=== PATIENT | male | born 1995 | race Caucasian/White ===

== ENCOUNTER → 2024-05-17 | Outpatient (CLI) | payer MEDICAID, SELFPAY | END | disposition home or self-care (01) | LOC: SL 10:23 | PROVIDERS: PCP Internal Medicine; Referring Provider Psychiatry & Neurology Neurology; Visit Provider Psychiatry & Neurology Neurology | DX: G47.10 Hypersomnia, unspecified (principal); G47.00 Insomnia, unspecified | CPT/HCPCS: 95806 ==

== ENCOUNTER → 2024-07-08 | Outpatient (CLI) | payer MEDICAID, SELFPAY | END | disposition home or self-care (01) | LOC: PSN 08:18 | PROVIDERS: PCP Internal Medicine; Referring Provider Psychiatry & Neurology Neurology; Visit Provider Psychiatry & Neurology Neurology | DX: G43.009 Migraine without aura, not intractable, without status migrainosus (principal); R41.3 Other amnesia; F41.9 Anxiety disorder, unspecified; F32.A Depression, unspecified; Z87.820 Personal history of traumatic brain injury | CPT/HCPCS: 95819 ==

== ENCOUNTER → 2024-09-29 | Outpatient (CLI) | payer MEDICAID, SELFPAY ==
[2024-09-29 12:20] LABS: Vitamin B12 501 pg/mL (211-911)
[2024-10-06 09:07] LABS: Vitamin B1, Thiamine 159.7 nmol/L (66.5-200.0)
== END | disposition home or self-care (01) ==
PROVIDERS: PCP Internal Medicine; Referring Provider Psychiatry & Neurology Neurology; Visit Provider Psychiatry & Neurology Neurology
DX: R41.3 Other amnesia (principal); F32.A Depression, unspecified; F41.9 Anxiety disorder, unspecified
CPT/HCPCS: 36415; 82607; 82652; 82746; 84425

== ENCOUNTER → 2024-10-26 | Outpatient (CLI) | payer MEDICAID, SELFPAY ==
--- NOTE | 2024-10-26 16:07 | MRI_ITS ---
HISTORY: neck pain; paresthesias in hands. TECHNIQUE: Multiplanar and multisequence MR images of the cervical spine were obtained without contrast. 271 images. COMPARISON: None. FINDINGS: VERTEBRAE: Vertebral body heights are maintained. No significant bone marrow signal abnormality. VERTEBRAL ALIGNMENT: Straightening of the cervical lordosis without anterior or posterior subluxation. SPINAL CORD: Cervical cord signal and morphology within normal limits. SOFT TISSUES: No prevertebral fluid collection. INTERVERTEBRAL DISCS: C2-3: No significant posterior disc protrusion, central canal stenosis, or foraminal narrowing. C3-4: Mild disc bulge resulting in mild central canal stenosis. No significant foraminal narrowing. C4-5: No significant posterior disc protrusion, central canal stenosis, or foraminal narrowing. C5-6: Mild left paracentral disc protrusion with annular fissure abutting the left traversing nerve root with mild central canal stenosis. No significant foraminal narrowing. C6-7: Very mild posterior disc protrusion with minimal narrowing of the thecal sac. No significant foraminal narrowing. C7-T1: No significant posterior disc protrusion, central canal stenosis, or foraminal narrowing. MRI/Spine Cervical (Routine) IMPRESSION: Mild C3-4 disc bulge resulting in mild spinal canal stenosis. Mild C5-6 left paracentral disc protrusion resulting in left nerve root abutment and mild spinal canal stenosis. Electronically Signed: Kassi Rodriguez MD at 12:02 EST ,
== END | disposition home or self-care (01) ==
LOC: MRI 16:02
PROVIDERS: PCP Internal Medicine; Referring Provider Psychiatry & Neurology Neurology; Visit Provider Psychiatry & Neurology Neurology
DX: M54.2 Cervicalgia (principal); R20.2 Paresthesia of skin
CPT/HCPCS: 72141

== ENCOUNTER → 2025-09-11 | Outpatient (CLI) | payer MEDICAID, SELFPAY ==
--- OUTSIDE RECORDS SUMMARY | 2025-09-11 20:09 | XMS RPT_ITS | CCD ---
Author Organization [facility] Clini[facility] Care Team Providers Care Marketing Manager Health Communications Name Role Phone Altagracia Dickerson Unavailable Altagracia Dickerson Unavailable CLEMENTINA BOO Unavailable Unavailable SELF, SELF Unavailable Unavailable YASMINE COLBY Unavailable Unavailable SELF, SELF Unavailable Unavailable YASMINE COLBY Unavailable Unavailable SELF, SELF Unavailable Unavailable Altagracia Dickerson Primary Care Provider [phone] MARITZA PLASCENCIA Attending Unava ilable ALTAGRACIA DICKERSON Primary Care Unavailable MARITZA PLASCENCIA Admitting Unava ilALTAGRACIA Parkinson Primary Care Unavailable NAILA BROCK Attending Unavailabl e Oberhauser DO, Fox Puente Primary Care Provider [phone] Altagracia Dickerson CNP Primary Care Provider OBKLEVER, FOX Referring Unavailable OBERHAUSER, FOX Admitting Unavailable ALTAGRACIA DICKERSON Primary Care Unavailable ESTER DOMÍNGUEZ Attending Unavailable OBERHAUSER, FOX L Referring Unavailable OBERHAUSER, FOX L Primary Care Unavailable OBERHAUSER, FOX L Referring Unavailable OBERHAUSER, FOX L Primary Care Unavailable PEGUEROKENNETH W Admitting Unavailable PEGUEROKENNETH W Attending Unavailable OBERHAUSER, FOX L Primary Care Unavailable EDYTA CHAVEZ Referring Unavailable OBERHAUSER, FOX L Primary Care Unavailable EDYTA CHAVEZ Referring Unavailable OBERHAUSER, FOX L Primary Care Unavailable EDYTA CHAVEZ Referring Unavailable OBERHAUSER, FOX L Primary Care Unavailable EDYTA CHAVEZ Referring Unavailable OBERHAUSER, FOX L Primary Care Unavailable EDYTA CHAVEZ Referring Unavailable OBERHAUSER, FOX L Primary Care Unavailable EDYTA CHAVEZ Referring Unavailable OBERHAUSER, FOX L Primary Care Unavailable EDYTA CHAVEZ Referring Unavailable OBERHAUSER, FOX L Primary Care Unavailable Oberhauser DO, Fox L Unavailable OBERHAUSER, FOX L Attending Unavailable OBERHAUSER, FOX L Primary Care Unavailable PEGUERO, KENNETH W Attending Unavailable OBERHAUSER, FOX L Referring Unavailable OBERHAUSER, FOX L Primary Care Unavailable PEGUERO, KENNETH W Attending Unavailable OBERHAUSER, FOX L Primary Care Unavailable PEGUERO, KENNETH W Attending Unavailable OBERHAUSER, FOX L Primary Care Unavailable OBERHAUSER, FOX L Attending Unavailable OBERHAUSER, FOX L Referring Unavailable OBERHAUSER, FOX L Primary Care Unavailable EDYTA CHAVEZ Attending Unavailable OBERHAUSER, FOX L Referring Unavailable OBERHAUSER, FOX L Primary Care Unavailable EDYTA CHAVEZ Attending Unavailable OBERHAUSER, FOX L Primary Care Unavailable EDYTA CHAVEZ Attending Unavailable OBERHAUSER, FOX L Primary Care Unavailable OBERHAUSER, FOX L Attending Unavailable OBERHAUSER, FOX L Referring Unavailable OBERHAUSER, FOX L Primary Care Unavailable OBERHAUSER, FOX L Primary Care Unavailable Oberhauser Dr. Fox WILEY Primary Care Provider OberhausDr. Fox mendoza DO Referring Provider Dr. Gallo Robles MD Attending Provider [phone] Domingo OLSEN-CMary Jane Attending Provider [phone] [address] Fox mendoza DO Primary Care Provider Oberhauser , Dr. Patterson Referring Provider Mary Jane Lane Attending Unavailable Oberhauser, Fox Primary Care Unavailable Oberhauser, Fox Referring Unavailable Mary Jane Lane Attending Unavailable Oberhauser, Fox Primary Care Unavailable Oberhauser, Fox Referring Unavailable Gallo Robles Attending Unavailable Oberhauser, Fox Primary Care Unavailable Oberhauser, Fox Referring Unavailable Gallo Robles Attending Unavailable Oberhauser, Fox Primary Care Unavailable Oberhauser, Fox Referring Unavailable Baddour, Gallo Attending Unavailable Baddour, Gallo Referring Unavailable Oberhauser, Fox Primary Care Unavailable Oberhauser, Fox Primary Care Unavailable Baddour, Gallo Attending Unavailable Baddour, Gallo Referring Unavailable Oberhauser, Fox Primary Care Unavailable Baddour, Gallo Attending Unavailable Oberhauser, Fox Referring Unavailable Medications Current Medications Medication Drug Class(es) Dates Sig (Normalized) Sig (Original) calcium chloride 0.0014 meq/ml / potassium chloride 0.004 meq/ml / sodium chloride 0.103 meq/ml / sodium lactate 0.028 meq/ml injectable solution (2 sources) Start: 02-16-2024 take 100 mL intravenously every hour 100 mL/hr, intravenous, Continuous, Starting on Thu02/16/24 at 1230, Recovery (only) cephalexin 500 mg oral capsule (1 source) Cephalosporin Antibacterial Start: 02-16-2024 End: 02-19-2024 take 1 capsule by mouth twice daily cephalexin (Keflex) 500 mg capsule Indications: Scrotal cyst Take 1 capsule (500 mg) by mouth 2 times a day for 3 days. 6 capsule 02/16/2024 02/19/2024 Active doxycycline hyclate 100 mg oral capsule (5 sources) Tetracycline-class Drug Start: 01-13-2024 End: 01-20-2024 doxycycline (Vibramycin) 100 mg capsule Indications: Testicle lump Take 1 capsule (100 mg) by mouth 2 times a day for 7 days. Take with at least 8 ounces (large glass) of water, do not lie down for 30 minutes after 14 capsule 0 01/13/2024 01/20/2024 Active HYDROmorphone (2 sources) Opioid Agonist Start: 02-16-2024 0.5 mg, intravenous, Every 5 min PRN, pain moderate (4-6), first line, Starting on Thu02/16/24 at 1202, Recovery (only), Max total of 4 mg regardless of dose. Start: 02-16-2024 0.5 mg, intrav enous, Every 5 min PRN, pain mild (1-3), first line, Starting on Thu02/16/24 at 1202, Recovery (only), Max total of 4 mg regardless of dose. magnesium oxide 400 mg oral tablet (2 sources) Start: 03-23-2025 take 1 tablet by mouth at bedtime Magnesium Oxide 400 mg (241.3 mg magnesium) tablet Active 400 mg PO AT BEDTIME 30 2 March 23, 2025 12:00am medical cannabis (13 sources) medical cannabis Take 1 each by mouth. Active medical cannabis Take 1 each by mouth. 0 Active meloxicam 15 mg oral tablet (4 sources) Nonsteroidal Anti-inflammatory Drug Start: 04-28-2024 End: 04-28-2025 take 1 tablet by mouth once daily meloxicam (Mobic) 15 mg tablet Indications: Bilateral hand numbness Take 1 tablet (15 mg) by mouth once daily. 30 tablet 11 04/28/2024 04/28/2025 Active methylPREDNISolone (1 source) Corticosteroid Start: 10-05-2024 End: 10-11-2024 methylPREDNISolone (Medrol Dospak) 4 mg tablets Indications: Intractable migraine with aura without status migrainosus Take as directed on package. 21 tablet 10/05/2024 10/11/2024 Active ondansetron 4 mg disintegrating oral tablet (10 sources) Serotonin-3 Receptor Antagonist Start: 05-06-2024 take 1 tablet by mouth three times daily as needed for nausea and vomiting Ondansetron 4 mg tablet,disintegratin g Active 4 mg PO THREE TIMES A DAY as needed for nausea and vomiting 90 5 May 06, 2024 4:30pm Start: 05-05-2024 End: 05-06-2024 take 1 tablet by mouth every eight hours Ondansetron 4 mg tablet,disintegrating Discontinued 4 mg PO Q8H May 05, 2024 12:00am May 06, 2024 4:31pm Start: 04-26-2024 End: 05-03-2024 take 1 tablet by mouth every eight hours as needed for nausea and nausea ondansetron ODT (Zofran-ODT) 4 mg disintegrating tablet Indications: Nausea Take 1 tablet (4 mg) by mouth every 8 hours if needed for nausea or vomiting for up to 7 days. 20 tablet 04/26/2024 05/03/2024 Active Start: 04-14-2024 End: 04-21-2024 take 1 tablet by mouth every eight hours as needed for nausea and nausea ondansetron ODT (Zofran-ODT) 4 mg disintegrating tablet Indications: Nausea Take 1 tablet (4 mg) by mouth every 8 hours if needed for nausea or vomiting for up to 7 days. 20 tablet 04/14/2024 04/21/2024 Active Start: 02-16-2024 End: 02-16-2024 4 mg, intravenous, Once as n eeded, nausea/vomiting, first line, Starting on Thu02/16/24 at 1202, For 1 dose, Recovery (only), When administering via IV Push, administer over 3-5 minutes. Start: 09-27-2018 End: 10-02-2018 take 1 tablet by mouth every eight hours as needed for nausea and nausea ondansetron 4 MG Tab Dispersible tablet Indications: Nausea Take 1 tablet by mouth every 8 hours as needed for Nausea for up to 5 days. 15 tablet 0 09/27/2018 10/02/2018 Active oxyCODONE hydrochloride 5 mg oral tablet (1 source) Opioid Agonist Start: 02-16-2024 take 1 tablet by mouth every four hours as needed 5 mg, oral, Every 4 hours PRN, pain mild (1-3), first line, Starting on Thu02/16/24 at 1202, Recovery (only), When able to take oral medications., If ordered PRN for pain, nurse is permitted to administer this medication for higher pain scores based on patient preference? Yes oxygen (O2) therapy (1 source) Start: 02-16-2024 inhalation, Continuous PRN - O2/gases, other, Starting on Thu02/16/24 at 1202, Recovery (only), Device: Nasal Cannula, Rate in liters per minute: Other, Custom Value: 1-6 LPM, Keep O2 Sat Above: 92% promethazine hydrochloride 25 mg oral tablet (1 source) Phenothiazine Start: 10-05-2024 End: 10-12-2024 take 1 tablet by mouth every six hours for nausea promethazine (Phenergan) 25 mg tablet Indications: Intractable migraine with aura without status migrainosus Take 1 tablet (25 mg) by mouth every 6 hours if needed for nausea or vomiting for up to 7 days. 30 tablet 10/05/2024 10/12/2024 Active promethazine (Phenergan) 6.25 mg in sodium chloride 0.9% 50 mL IV (1 source) Start: 02-16-2024 6.25 mg, intravenous, Administer over 15 Minutes, Once as needed, Nausea/vomiting, second line, Starting on Thu02/16/24 at 1202, For 1 dose, Recovery (only) raNITIdine 150 mg oral tablet (2 sources) Histamine-2 Receptor Antagonist Start: 09-27-2018 End: 10-27-2018 take 1 tablet by mouth at bedtime ranitidine 150 MG Tab tablet Indications: Gastroesophageal reflux disease without esophagitis Take 1 tablet by mouth at bedtime. 30 tablet 0 09/27/2018 Active SUMAtriptan 50 mg oral tablet (16 sources) Serotonin-1b and Serotonin-1d Receptor Agonist Start: 06-08-2025 take 1 tablet by mouth every two hours Sumatriptan Succinate 50 mg tablet Active 0 PO .COMPLEX 9 June 08, 2025 12:00am take 1 tab at onset of headache; if no relief may repeat 1 tab after at least 2 hrs; max = 4 tabs/24 hr PO Start: 05-05-2024 End: 05-06-2024 take 1 tablet by mouth every two hours Sumatriptan Succinate (Imitrex) 100 mg tablet Discontinued 0 PO .COMPLEX May 05, 2024 12:00am May 06, 2024 4:30pm take 1 tab at onset of headache; if no relief, may repeat 1 tab after at least 2 hrs; max = 2 tabs/24 hrs PO Start: 01-13-2024 End: 01-12-2025 SUMAtriptan (Imitrex) 50 mg tablet Indications: Chronic migraine without aura without status migrainosus, not intractable Take 1 tablet (50 mg) by mouth 1 time if needed for migraine. May repeat after 2 hours. 9 tablet 5 01/13/2024 01/12/2025 Active topiramate 100 mg oral tablet (11 sources) Start: 03-23-2025 End: 06-08-2025 take 1 tablet by mouth at bedtime Topiramate 100 mg tablet Active 100 mg PO AT BEDTIME 90 June 08, 2025 3:12pm Start: 12-01-2024 End: 03-23-2025 Topiramate 50 mg tablet Disc ontinued 50 mg PO TWICE A DAY 60 5 December 01, 2024 1:00am March 23, 2025 3:10pm Begin after completing 1 week course of topiramate 25 mg twice a day Start: 04-26-2024 End: 12-01-2024 Topiramate 25 mg tablet Disc ontinued 0 .ROUTE .COMPLEX 60 4 September 08, 2024 1:00am December 01, 2024 6:26pm Take 1 tablet orally for 1 week then 1 tablet twice daily thereafter. Completed/Discontinued Medications Medication Drug Class(es) Dates Sig (Normalized) Sig (Original) acetaminophen 325 mg / HYDROcodone bitartrate 5 mg oral tablet (4 sources) Opioid Agonist Start: 02-16-2024 End: 04-14-2024 take 1 tablet by mouth every six hours for pain HYDROcodone-acetam inophen ([place]) 5-325 mg tablet Indications: Scrotal cyst Take 1 tablet by mouth every 6 hours if needed for severe pain (7 - 10). 20 tablet 02/16/2024 04/14/2024 Discontinued (Therapy completed) amoxicillin 500 mg oral capsule (1 source) Penicillin-class Antibacterial Start: 10-21-2018 End: 10-31-2018 take 1 capsule by mouth every twelve hours amoxicillin 500 MG Cap capsule Indications: Pharyngitis due to Streptococcus species Take 1 capsule by mouth every 12 hours for 10 days. 20 capsule 0 10/21/2018 10/31/2018 5 ml midazolam 1 mg/ml injection (1 source) Benzodiazepine Start: 02-16-2024 End: 02-16-2024 2 mg, intravenous, Once as needed, anxiety, Starting on Thu02/16/24 at 1019, For 1 dose, Preprocedure rimegepant 75 mg disintegrating oral tablet (4 sources) Start: 12-01-2024 End: 06-08-2025 take 1 tablet by mouth once daily as needed for headache Rimegepant (Nurtec Odt) 75 mg tablet,disintegrat ing Discontinued 75 mg PO DAILY as needed for migraine headache 16 5 March 23, 2025 3:10pm June 08, 2025 3:19pm ubrogepant 100 mg oral tablet (9 sources) Start: 04-14-2024 End: 12-01-2024 take 1 tablet by mouth once daily as needed for headache Ubrogepant (Ubrelvy) 100 mg tablet Discontinued 100 mg PO DAILY as needed for headache 16 5 May 06, 2024 4:29pm December 01, 2024 6:26pm Problems Active Problems Problem Classification Problem Date Documented Date Episodic/Chronic Anxiety disorders (12 sources) Posttraumatic stress disorder; Translations: [Post-traumatic stress disorder, unspecified] Onset: 02-16-2024 02-16-2024 Chronic Headache; including migraine (20 sources) Migraine without aura, not refractory ; Translations: [Chronic migraine without aura, not intractable, without status migrainosus] Onset: 01-13-2024 01-13-2024 Chronic Intracranial injury (20 sources) History of concussion injury of brain; Translations: [Personal history of traumatic brain injury] Onset: 01-13-2024 01-13-2024 Episodic Mood disorders (2 sources) Depressive disorder; Translations: [Depression] 05-06-2024 Chronic Other connective tissue disease (1 source) Pain of bilateral upper limbs; Translations: [Pain in right arm] 05-30-2024 Episodic Other connective tissue disease (2 sources) Pain in right arm; Translations: [Pain in right arm] Onset: 05-30-2024 Episodic Other connective tissue disease (2 sources) Pain in left arm; Translations: [Pain in left arm] Onset: 05-30-2024 Episodic Other male genital disorders (10 sources) Disorder of male genital organ; Translations: [Hydrocele, unspecified] Onset: 01-27-2024 01-27-2024 Episodic Other nervous system disorders (7 sources) Paresthesia of skin; Translations: [Paresthesia of both hands] Onset: 06-08-2025 09-08-2024 Episodic Other upper respiratory disease (1 source) Pain in throat; Translations: [Sore Throat] Onset: 10-17-2018 Episodic Other upper respiratory infections (2 sources) Viral laryngitis; Translations: [Streptococcal sore throat] Episodic Residual codes; unclassified (2 sources) Hypersomnia; Translations: [Hypersomnia, unspecified] 05-06-2024 Chronic Residual codes; unclassified (1 source) Sleep apnea, unspecified; Translations: [Sleep apnea, unspecified] Onset: 08-21-2025 Chronic Residual codes; unclassified (2 sources) Insomnia; Translations: [Insomnia, unspecified] 05-06-2024 Episodic Residual codes; unclassified (6 sources) Amnesia; Translations: [Other amnesia] 12-03-2024 Episodic Residual codes; unclassified (1 source) Other amnesia; Translations: [Other amnesia] Onset: 06-08-2025 Episodic Unclassified (1 source) Sore Throat / 82() Onset: 10-17-2018 Unclassified (1 source) Vomiting / 120() Onset: 09-27-2018 Unclassified (1 source) Chronic migraine with aura, not intractable, without status migrainosus; Translations: [Chronic migraine with aura, not intractable, without status migrainosus] Onset: 04-14-2024 Past or Other Problems Problem Classification Problem Date Documented Da te Episodic/Chronic Esophageal disorders (1 source) Esophageal disorders Genitourinary symptoms and ill-defined conditions (11 sources) Nocturia; Translations: [Nocturia] Onset: 01-27-2024 01-27-2024 Episodic Mood disorders (2 sources) Mood disorders Onset: 05-23-2024 05-23-2024 Nausea and vomiting (5 sources) Nausea; Translations: [Vomiting] Onset: 09-27-2018 04-14-2024 Episodic Other connective tissue disease (4 sources) Pain of bilateral hands; Translations: [Pain in right hand] Onset: 05-25-2024 04-28-2024 Episodic Other connective tissue disease (2 sources) Pain in right hand; Translations: [Pain in right hand] Onset: 05-25-2024 Episodic Other connective tissue disease (2 sources) Pain in left hand; Translations: [Pain in left hand] Onset: 05-25-2024 Episodic Other male genital disorders (16 sources) Testicular mass; Translations: [Other specified disorders of the male genital organs] Onset: 01-13-2024 01-13-2024 Episodic Other male genital disorders (4 sources) Other specified disorders of the male genital organs; Translations: [Other specified disorders of the male genital organs] Onset: 01-13-2024 Episodic Other male genital disorders (2 sources) Hydrocele, unspecified; Translations: [Hydrocele, unspecified] Onset: 01-27-2024 Episodic Other nervous system disorders (7 sources) Numbness of hand; Translations: [Anesthesia of skin] Onset: 05-23-2024 04-15-2024 Episodic Other nervous system disorders (4 sources) Anesthesia of skin; Translations: [Anesthesia of skin] Onset: 05-23-2024 Episodic Other screening for suspected conditions (not mental disorders or infectious disease) (20 sources) Patient encounter status; Translations: [Encounter for screening for diabetes mellitus] Onset: 01-13-2024 01-13-2024 Episodic Other skin disorders (11 sources) Scrotal mass; Translations: [Follicular cyst of the skin and subcutaneous tissue, unspecified] Onset: 02-05-2024 02-16-2024 Episodic Other skin disorders (8 sources) Sebaceous cyst of scrotum; Translations: [Sebaceous cyst] Onset: 03-03-2024 03-03-2024 Episodic Other skin disorders (4 sources) Follicular cyst of the skin and subcutaneous tissue, unspecified; Translations: [Follicular cyst of the skin and subcutaneous tissue, unspecified] Onset: 02-05-2024 Episodic Other skin disorders (2 sources) Sebaceous cyst; Translations: [Sebaceous cyst] Onset: 03-03-2024 Episodic Spondylosis; intervertebral disc disorders; other back problems (7 sources) Neck pain; Translations: [Cervicalgia] Onset: 11-15-2024 09-08-2024 Episodic Unclassified (13 sources) Onset: 01-13-2024 Resolved: 05-23-2024 01-13-2024 Unclassified (1 source) Chronic migraine with aura, not intractable, without status migrainosus; Translations: [Chronic migraine with aura, not intractable, without status migrainosus] Onset: 04-14-2024 Results Test Name Value Interpretation Reference Range [facility] Neurology Visit Reporton Neurology Visit Report [facility] [address] [place] [address], [address] [place] [address] OFFICE VISIT Date of Service: 08/21/25 MR#: [id number] Acct: [id number] Name: JOSE FLORES II Rep #: [id number] : 1995 Provider: Dr. Gallo avitia MD Age/Sex: 30/M Location: [facility] Status: Signed HPI HPI Details: Interim History: Jose returns for follow-up visit. He has a history of depression, anxiety, posttraumatic stress disorder, attention deficit hyperactivity disorder, prior peptic ulcer disease, and hyperlipidemia. He has been experiencing headaches since he was a teenager. His headaches were initially mild. Around 2019, he had 2 concussions that occurred a month apart. With each of the occurrences, he was struck in the head by frying machine equipment at his place of employment. He did not lose consciousness with either of the episodes. He stated that his concentration was impaired and he had impaired recall following these episodes. He was seen in the emergency room following each of the episodes and was discharged home with a diagnosis of mild concussion. He has continued to report having impaired concentration and impaired recall. His headaches worsened following these mild concussions and he had headaches nearly daily. Topiramate 25mg daily was initiated in 2022 and increased to 50mg twice daily in November 2024. His headaches were reduced to 2 to 3 days per week with severe headaches occurring about 1 day per week. He then had an increase in frequency of headaches again beginning in in March 2025. He is taking topiramate 100 mg nightly. He is experiencing headaches almost daily. He often awakens with headaches. He has associated photophobia, phonophobia and occasionally has associated nausea. He denied having visual field loss, or hearing loss. He occasionally has had episodes of acute sharp head pain that last about 10 minutes each. Advil and sumatriptan 100 mg were not of benefit for his headaches. Ubrelvy 100mg was not of benefit for his headaches. Nurtec ODT 75mg daily as needed was not of benefit. Rizatriptan has not been of benefit. He has chronic neck pain that has been present since around the age of 17 years. Since 2023, he has been experiencing numbness and tingling and weakness in both hands, initially left greater than right but now right greater than left. He has a tendency to drop objects from his hands. Wrist x- rays were unremarkable. EMG/nerve conduction studies of the upper extremities (2023) were normal. A cervical spine MRI in October 2024 revealed straightening of the normal cervical lordosis and multilevel disc disease including 2 small disc herniates at C5-6 and C6-7. Left nerve root abutment at C5-6 is noted. He has insomnia. He snores at night. He does not feel well rested when he awakens in the morning. He has daytime hypersomnia. He is awakened from sleep at night feeling short of breath. He awakens multiple times during the night. His unattended sleep study did not reveal evidence of sleep apnea. Patient reports excessive caffeine intake (Mountain Dew). He has been using marijuana since 2018. Marijuana was medically prescribed beginning around 2019. During childhood he was treated with Adderall and Ritalin for his attention deficit hyperactivity disorder. Mini-Mental status exam score was 26/30 in April 2024. Physical Exam: Neuro: The patient is awake and alert and responds appropriately Heart: Regular rate and rhythm Neck: Neck circumference 43 cm Supplemental Info Head MRI (01/18/24): Findings: CSF spaces: the ventricles, sulci and basal cisterns are within normal limits. there is no abnormal extra-axial fluid collection. Parenchyma: There is no diffusion restriction abnormality to suggest acute infarct. There is no focal parenchymal signal abnormality. There is no mass effect or midline shift. Paranasal sinuses and Mastoids: There is a small mucosal retention cysts in the floor of the left maxillary sinus, otherwise the visualized pranasal sinuses and mastoid air cells are essentially clear. Impression: Unremarkable MRI fo the brain. CBC, CMP, lipid profile, hemoglobin A1c, TSH (03/24/24): cholesterol 206 (high), LDL 143 (high), VLDL 22 (normal), triglycerides 112 (normal), non HDL cholesterol 165 (high), HDL 41 (normal), glucose 112 (high). Bilateral wrist x-rays (04/28/24): unremarkable bilateral wrist radiographs. Unattended sleep study (05/17/2024): The study does not meet the criteria used to define the presence of sleep apnea. Clinical correlation is suggested. An inpatient sleep study should be considered if the clinical suspicion for sleep apnea is high. EMG/nerve conduction studies of the upper extremities (05/30/2024): Summary: The bilateral median and ulnar motor and sensory nerve conduction studies were normal. The bilateral radial sensory nerve conduction studies were also normal (more content not included)... Normal [facility] Neurology Visit Reporton Neurology Visit Report [facility] [address], [address] [place] [address] OFFICE VISIT Date of Service: 06/08/25 MR#: [id number] Acct: [id number] Name: JOSE FLORES II Rep #: [id number] : 1995 Provider: SANDRA wang Age/Sex: 30/M Location: [facility]. Status: Signed HPI HPI Details: Interim History: Jose returns for follow-up visit. He is accompanied by his girlfriend. He has a history of depression, anxiety, posttraumatic stress disorder, attention deficit hyperactivity disorder, prior peptic ulcer disease, and hyperlipidemia. He has been experiencing headaches since he was a teenager. His headaches were initially mild. He states that around 2019, he had 2 concussions that occurred a month apart. With each of the occurrences, he was struck in the head by frying machine equipment at his place of employment. He did not lose consciousness with either of the episodes. He stated that his concentration was impaired and he had impaired recall following these episodes. He was seen in the emergency room following each of the episodes and was discharged home with a diagnosis of mild concussion. He continues to report having impaired concentration and impaired recall. His headaches worsened following these mild concussions and he had headaches nearly daily. Topiramate 25mg daily was initiated in 2022 and increased to 50mg twice daily in November 2024. His headaches were reduced to 2 to 3 days per week with severe headaches occurring about 1 day per week. Patient had an increase in frequency of headaches again in March 2025. He reports difficulties with medication adherence and therefore was switched to topiramate 100 mg nightly to assist with this. He has associated photophobia, phonophobia and occasionally has associated nausea. He denied having visual field loss, or hearing loss. He occasionally has had episodes of acute sharp head pain that last about 10 minutes each. Advil and sumatriptan 100 mg were not of benefit for his headaches. Ubrelvy 100mg is not of benefit for his headaches. Nurtec ODT 75mg daily as needed was reported to not be of benefit. He has chronic neck pain that has been present since around the age of 17 years. Since in 2023 he has been experiencing numbness and tingling and weakness in both hands, initially left greater than right but now right greater than left. He states that he has a tendency to drop objects from his hands. Wrist x-rays were unremarkable. EMG/nerve conduction studies of the upper extremities performed in 2023 were normal. A cervical spine MRI in October 2024 revealed straightening of the normal cervical lordosis and multilevel disc disease including 2 small disc herniates at C5-6 and C6-7. Left nerve root abutment at C5-6 is noted. He has insomnia. He awakens multiple times during the night. He snores at night. He does not feel well rested when he awakens in the morning. He has daytime hypersomnia. His unattended sleep study did not reveal evidence of sleep apnea. Patient reports excessive caffeine intake (Mountain Dew) and minimal to no water intake. He has been using marijuana since 2018. Marijuana was medically prescribed beginning around 2019. During childhood he was treated with Adderall and Ritalin for his attention deficit hyperactivity disorder. Mini-Mental status exam score was 26/30 in April 2024. ROS: Per HPI, essentially unchanged from previous visit PHYSICAL EXAM: Constitutional: Well-developed obese male in no acute distress. He is right-handed. Vital signs WNL. Respiratory: Normal effort. Symmetric chest movement. Clear to auscultation bilaterally. Cardio: Regular rate and rhythm. No auscultated murmurs. No auscultated carotid bruit. Neurological exam: Mental status: Alert, awake, oriented to person, place, year, and day of the week. Immediate recall is 3/3; delayed 5-minute recall is 2/3. Speech is fluent with good comprehension. He has a flat affect. Cranial nerves II-XII: PERRL 4 mm in size bilaterally. EOM intact. Ocular pursuit is smooth. There are no reported visual field deficits. Facial sensation is relatively intact, his left cheek is swollen due to a wisdom tooth needing removal per patient report. No ptosis. Tongue is midline. Phonation is normal. Swallowing is intact. Cerebellum: No nystagmus. No dysmetria; normal [id number] maneuvers. Rapid finger tapping test normal with normal amplitude and speed. Reflexes: Biceps and patellar deep tendon reflexes are 1+ throughout and symmetric bilaterally. Sensory: Sensation is impaired to light touch and vibration in in the bilateral fingers, hands, and forearms. Sensory loss is worse distally and worse on the right. Supplemental Info Head MRI (01/18/24): Findings: CSF spaces: the ventricles, sulci and basal cisterns are within normal limits. there is no abnormal extra-axial fluid collection. Parenchyma: Ther (more content not included)... Normal [facility] Neurology Visit Reporton Neurology Visit Report [facility] [address], [address] [place] [id number] OFFICE VISIT Date of Service: 03/23/25 MR#: [id number] Acct: [id number] Name: JOSE FLORES II Rep #: [id number] : 1995 Provider: SANDRA wang Age/Sex: 30/M Location: [facility]. Status: Signed HPI HPI Details: Interim History: Jose returns for follow-up visit. He is accompanied by his girlfriend. He has a history of depression, anxiety, posttraumatic stress disorder, attention deficit hyperactivity disorder, prior peptic ulcer disease, and hyperlipidemia. He has been experiencing headaches since he was a teenager. His headaches were initially mild. He states that around 2019, he had 2 concussions that occurred a month apart. With each of the occurrences, he was struck in the head by frying machine equipment at his place of employment. He did not lose consciousness with either of the episodes. He stated that his concentration was impaired and he had impaired recall following these episodes. He was seen in the emergency room following each of the episodes and was discharged home with a diagnosis of mild concussion. He continues to report having impaired concentration and impaired recall. His headaches worsened following these mild concussions and he had headaches nearly daily. Topiramate 25mg daily was initiated in 2022 and was most recently increased to 50mg twice daily in November 2024. His headaches were reduced to 2 to 3 days per week with severe headaches occurring about 1 day/week. He has associated photophobia, phonophobia and occasionally has associated nausea. He denied having visual field loss, or hearing loss. He occasionally has had episodes of acute sharp head pain that last about 10 minutes each. Advil and sumatriptan 100 mg were not of benefit for his headaches. Ubrelvy 100mg is not of benefit for his headaches. Nurtec ODT 75mg daily as needed is of unclear benefit at this time. Of note, patient has difficulties with medication adherence. He has chronic neck pain that has been present since around the age of 17 years. Since in 2023 he has been experiencing numbness and tingling and weakness in both hands (left greater than right). He states that he has a tendency to drop objects from his hands. Wrist x-rays were unremarkable. EMG/nerve conduction studies of the upper extremities performed in 2023 were normal. A cervical spine MRI in October 2024 revealed straightening of the normal cervical lordosis and multilevel disc disease including 2 small disc herniates at C5-6 and C6-7. Left nerve root abutment at C5-6 is noted. He has insomnia. He awakens multiple times during the night. He snores at night. He does not feel well rested when he awakens in the morning. He has daytime hypersomnia. He has unattended sleep study did not reveal evidence of sleep apnea. He has been using marijuana since 2018. Marijuana was medically prescribed beginning around 2019. During childhood he was treated with Adderall and Ritalin for his attention deficit hyperactivity disorder. Mini-Mental status exam score was 26/30 in April 2024. Patient reports excessive caffeine intake (Mountain Dew) and minimal to no water intake. ROS: Per HPI, essentially unchanged from previous visit Physical Exam: Neuro: The patient is awake and alert and responds appropriately; speech is fluent with good comprehension; he currently has a headache with photophobia- he is wearing sunglasses Supplemental Info Head MRI (01/18/24): Findings: CSF spaces: the ventricles, sulci and basal cisterns are within normal limits. there is no abnormal extra-axial fluid collection. Parenchyma: There is no diffusion restriction abnormality to suggest acute infarct. There is no focal parenchymal signal abnormality. There is no mass effect or midline shift. Paranasal sinuses and Mastoids: There is a small mucosal retention cysts in the floor of the left maxillary sinus, otherwise the visualized pranasal sinuses and mastoid air cells are essentially clear. Impression: Unremarkable MRI fo the brain. CBC, CMP, lipid profile, hemoglobin A1c, TSH (03/24/24): cholesterol 206 (high), LDL 143 (high), VLDL 22 (normal), triglycerides 112 (normal), non HDL cholesterol 165 (high), HDL 41 (normal), glucose 112 (high). Bilateral wrist x-rays (04/28/24): unremarkable bilateral wrist radiographs. Unattended sleep study (05/17/2024): The study does not meet the criteria used to define the presence of sleep apnea. Clinical correlation is suggested. An inpatient sleep study should be considered if the clinical suspicion for sleep apnea is high. EMG/nerve conduction studies of the upper extremities (05/30/2024): Summary: The bilateral median and ulnar motor and sensory nerve conduction studies were normal. The bilateral radial sensory nerve conduction studies were also normal. Needle EMG of the tested muscles (more content not included)... Normal [facility] Neurology Visit Reporton Neurology Visit Report [facility] [address], [address] [place] [address] OFFICE VISIT Date of Service: 12/01/24 MR#: [id number] Acct: [id number] Name: JOSE FLORES II Rep #: [id number] : 1995 Provider: Dr. Gallo avitia MD Age/Sex: 29/M Location: [facility]. Status: Signed HPI HPI Chief Complaint: Establish Care Details: Interim History: Jose returns for follow-up visit. He has a history of depression, anxiety, posttraumatic stress disorder, attention deficit hyperactivity disorder, prior peptic ulcer disease, and hyperlipidemia. He has been experiencing headaches since he was a teenager. His headaches were initially mild. He states that around 2019, he had 2 concussions that occurred a month apart. With each of the occurrences, he was struck in the head by frying machine equipment at his place of employment. He did not lose consciousness with either of the episodes. He stated that his concentration was impaired and he had impaired recall following these episodes. He was seen in the emergency room following each of the episodes and was discharged home with a diagnosis of mild concussion. He continues to report having impaired concentration and impaired recall. His headaches worsened following these mild concussions and he had headaches nearly daily. Topiramate 25mg daily was initiated in 2022. He now has headaches 2 to 3 days per week. Severe headaches occur about 1 day/week. He has associated photophobia, phonophobia and occasionally has associated nausea. He denied having visual field loss, or hearing loss. He occasionally has had episodes of acute sharp head pain that last about 10 minutes each. Advil and sumatriptan 100 mg were not of benefit for his headaches. Ubrelvy 100mg is not of benefit for his headaches. He has chronic neck pain that has been present since around the age of 17 years. Since in 2023 he has been experiencing numbness and tingling and weakness in both hands (left greater than right). He states that he has a tendency to drop objects from his hands. Wrist x-rays were unremarkable. EMG/nerve conduction studies of the upper extremities performed in 2023 were normal. A cervical spine MRI in October 2024 revealed straightening of the normal cervical lordosis and multilevel disc disease including 2 small disc herniates at C5-6 and C6-7. Left nerve root abutment at C5-6 is noted. He has insomnia. He awakens multiple times during the night. He snores at night. He does not feel well rested when he awakens in the morning. He has daytime hypersomnia. He has unattended sle ep study did not reveal evidence of sleep apnea. He has been using marijuana since 2018. Marijuana was medically prescribed beginning around 2019. During childhood he was treated with Adderall and Ritalin for his attention deficit hyperactivity disorder. Mini-Mental status exam score was 26/30 in April 2024. Physical Exam: Neuro: The patient is awake and alert and responds appropriately; speech is fluent; motor strength is 5/5 in the first dorsal interosseous bilaterally and abductor pollicis brevis bilaterally Supplemental Info Head MRI (01/18/24): Findings: CSF spaces: the ventricles, sulci and basal cisterns are within normal limits. there is no abnormal extra-axial fluid collection. Parenchyma: There is no diffusion restriction abnormality to suggest acute infarct. There is no focal parenchymal signal abnormality. There is no mass effect or midline shift. Paranasal sinuses and Mastoids: There is a small mucosal retention cysts in the floor of the left maxillary sinus, otherwise the visualized pranasal sinuses and mastoid air cells are essentially clear. Impression: Unremarkable MRI fo the brain. CBC, CMP, lipid profile, hemoglobin A1c, TSH (03/24/24): cholesterol 206 (high), LDL 143 (high), VLDL 22 (normal), triglycerides 112 (normal), non HDL cholesterol 165 (high), HDL 41 (normal), glucose 112 (high). Bilateral wrist x-rays (04/28/24): unremarkable bilateral wrist radiographs. Unattended sleep study (05/17/2024): The study does not meet the criteria used to define the presence of sleep apnea. Clinical correlation is suggested. An inpatient sleep study should be considered if the clinical suspicion for sleep apnea is high. EMG/nerve conduction studies of the upper extremities (05/30/2024): Summary: The bilateral median and ulnar motor and sensory nerve conduction studies were normal. The bilateral radial sensory nerve conduction studies were also normal. Needle EMG of the tested muscles showed no abnormal spontaneous activity. Normal motor unit action potentials and recruitment patterns were seen. Impression: This is a normal EMG. There is no clear electrodiagnostic evidence of a bilateral cervical radiculopathy, brachial plexopathy, entrapment neuropathy, median or ulnar neuropathy at this time. EEG (07/08/2024): Description (more content not included)... Normal [facility] Spine Cervical (Routine)on 0 10-26-2024 Spine Cervical (Routine) [facility] [address] [place] [address] Spine Cervical (Routine) MR#: [id number] Acct: [id number] Name: JOSE FLORES LLOYD Rep #: [id number] : 1995 M 29 From: Kassi klein MD PCP: Dr. Fox Arnett, DO Status: REG CLI Study: Spine Cervical (Routine) Date of Exam: Exam# [id number] Ordering Dr: Galol Robles MD [id number] HISTORY: neck pain; paresthesias in hands. TECHNIQUE: Multiplanar and multisequence MR images of the cervical spine were obtained without contrast. 271 images. COMPARISON: None. FINDINGS: VERTEBRAE: Vertebral body heights are maintained. No significant bone marrow signal abnormality. VERTEBRAL ALIGNMENT: Straightening of the cervical lordosis without anterior or posterior subluxation. SPINAL CORD: Cervical cord signal and morphology within normal limits. SOFT TISSUES: No prevertebral fluid collection. INTERVERTEBRAL DISCS: C2-3: No significant posterior disc protrusion, central canal stenosis, or foraminal narrowing. C3-4: Mild disc bulge resulting in mild central canal stenosis. No significant foraminal narrowing. C4-5: No significant posterior disc protrusion, central canal stenosis, or foraminal narrowing. C5-6: Mild left paracentral disc protrusion with annular fissure abutting the left traversing nerve root with mild central canal stenosis. No significant foraminal narrowing. C6-7: Very mild posterior disc protrusion with minimal narrowing of the thecal sac. No significant foraminal narrowing. C7-T1: No significant posterior disc protrusion, central canal stenosis, or foraminal narrowing. MRI/Spine Cervical (Routine) IMPRESSION: Mild C3-4 disc bulge resulting in mild spinal canal stenosis. Mild C5-6 left paracentral disc protrusion resulting in left nerve root abutment and mild spinal canal stenosis. Electronically Signed: Kassi Rodriguez MD at 12:02 EST , CC: Dr. 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 B1, Whole Blood was developed and its performance characteristics determined by [employer]. It has not been cleared or approved by the Food and Drug Administration. Result Comment: Perf ormed at: [facility] [address] [id number] [employer] Supervisor: Junito Nolasco MD, Phone: [phone] Performed By: #### L 503.6588, L3213.3760, L506.0250, L3300.8000 #### [facility] [address] [facility] [place], [place], [id number] Vitamin D 1,25-Dihydroxyon 1 12-04-2023 VIT D 1,25 DIHY 35.0 pg/mL Normal 24.8-81.5 [facility] Comment on above: Result Comment: Perf ormed at: [address] [id number] [employer] Supervisor: Junito Nolasco MD, Phone: [phone] Performed By: #### L 503.0105, L3300.0960, L506.0250, L3300.8000 #### [facility] [address] [place], [address] Folates, (Folic Acid)on 09-18 FOLATES 4.70 ng/mL Normal 3.1-55.4 [facility] Comment on above: Order Comment: N Performed By: #### L 503.0105, L3300.0960, L506.0250, L3300.8000 #### [facility] [address] [place], [address] Vitamin B12on 09-29-2024 Cobalamin (Vitamin B12) [Mass/Vol] 501 pg/mL Normal 211-911 [facility] Comment on above: Performed By: #### L 503.0105, L3300.0960, L506.0250, L3300.8000 #### [facility] [address] [place], [address] Neurology Visit Reporton Neurology Visit Report [facility] [address], [address] [place], [place] [address] OFFICE VISIT Date of Service: 09/08/24 MR#: [id number] Acct: [id number] Name: JOSE FLORES II Rep #: [id number] : 1995 Provider: Dr. Gallo avitia MD Age/Sex: 29/M Location: [facility] Status: Signed [facility] Chief Complaint: Establish Care Details: Interim History: Jose returns for follow-up visit. He has a history of depression, anxiety, posttraumatic stress disorder, attention deficit hyperactivity disorder, prior peptic ulcer disease, and hyperlipidemia. He has been experiencing headaches since he was a teenager. His headaches were initially mild. He states that around 2019, he had 2 concussions that occurred a month apart. With each of the occurrences, he was struck in the head by frying machine equipment at his place of employment. He did not lose consciousness with either of the episodes. He stated that his concentration was impaired and he had impaired recall following these episodes. He was seen in the emergency room following each of the episodes and was discharged home with a diagnosis of mild concussion. He continues to report having impaired concentration and impaired recall. His headaches worsened following these mild concussions and he reports that he has been experiencing headaches nearly daily. Severe headaches occur about 1 day/week. He has associated photophobia, phonophobia and occasionally has associated nausea. He denied having visual field loss, or hearing loss. He occasionally also has had episodes of acute sharp head pain that last about 10 minutes each. Advil and sumatriptan 100 mg were not not of benefit for his headaches. He has chronic neck pain that has been present since around the age of 17 years. Since earlier in 2023 he has been experiencing numbness and tingling and weakness in both hands (left greater than right). He states that he has a tendency to drop objects from his hands. Wrist x-rays were unremarkable. EMG/nerve conduction studies of the upper extremities performed earlier in 2023 were normal. He has insomnia. He states that he awakens multiple times during the night. He snores at night. He does not feel well rested when he awakens in the morning. He has daytime hypersomnia. He has unattended sleep study did not reveal evidence of sleep apnea. He has been using marijuana since 2019. Marijuana was medically prescribed beginning around 2019. During childhood he was treated with Adderall and Ritalin for his attention deficit hyperactivity disorder. Mini-Mental status exam score was 26/30 in April 2024. Physical Exam: Neuro: The patient is awake and alert and responds appropriately; speech is fluent; motor strength is 5/5 in the biceps bilaterally, triceps bilaterally, deltoid bilaterally, first dorsal interosseous bilaterally and abductor pollicis brevis bilaterally; decreased soft touch is noted in the left index finger Extremities: No cyanosis or edema is noted in the hands Supplemental Info Head MRI (01/18/24): Findings: CSF spaces: the ventricles, sulci and basal cisterns are within normal limits. there is no abnormal extra-axial fluid collection. Parenchyma: There is no diffusion restriction abnormality to suggest acute infarct. There is no focal parenchymal signal abnormality. There is no mass effect or midline shift. Paranasal sinuses and Mastoids: There is a small mucosal retention cysts in the floor of the left maxillary sinus, otherwise the visualized pranasal sinuses and mastoid air cells are essentially clear. Impression: Unremarkable MRI fo the brain. CBC, CMP, lipid profile, hemoglobin A1c, TSH (03/24/24): cholesterol 206 (high), LDL 143 (high), VLDL 22 (normal), triglycerides 112 (normal), non HDL cholesterol 165 (high), HDL 41 (normal), glucose 112 (high). Bilateral wrist x-rays (04/28/24): unremarkable bilateral wrist radiographs. Unattended sleep study (05/17/2024): The study does not meet the criteria used to define the presence of sleep apnea. Clinical correlation is suggested. An inpatient sleep study should be considered if the clinical suspicion for sleep apnea is high. EMG/nerve conduction studies of the upper extremities (05/30/2024): Summary: The bilateral median and ulnar motor and sensory nerve conduction studies were normal. The bilateral radial sensory nerve conduction studies were also normal. Needle EMG of the tested muscles showed no abnormal spontaneous activity. Normal motor unit action potentials and recruitment patterns were seen. Impression: This is a normal EMG. There is no clear electrodiagnostic evidence of a bilateral cervical radiculopathy, brachial plexopathy, entrapment neuropathy, median or ulnar neuropathy at this time. EEG (07/08/2024): Description: Background: The recording was obtained during awake and drowsy state. In the maximally alert state, (more content not included)... Normal [facility] XR Wrist - bilateral 3 Views on 04-29-2024 1. Unremarkable bilateral wrist radiographs. MACRO: None. Signed by: Sho Cavazos 04/29/2024 6:40 PM Dictation workstation: [id number] MMODAL Interpreted By: Sho Cavazos, STUDY: Bilateral wrists, three views each. INDICATION: Signs/Symptoms:pain, numb, tingling. COMPARISON: None. ACCESSION NUMBER(S): [id number] ORDERING CLINICIAN: EDYTA CHAVEZ FINDINGS: Right wrist: No acute fracture or malalignment. No significant degenerative changes. Soft tissues are within normal limits. Left wrist: No acute fracture or malalignment. No significant degenerative changes. Soft tissues are within normal limits. MMODAL Sho Cavazos MD - 04/29/2024 Interpreted By: Kosaraju, Sho, STUDY: Bilateral wrists, three views each. INDICATION: Signs/Symptoms:pain, numb, tingling. COMPARISON: None. ACCESSION NUMBER(S): [id number] ORDERING CLINICIAN: EDYTA CHAVEZ FINDINGS: Right wrist: No acute fracture or malalignment. No significant degenerative changes. Soft tissues are within normal limits. Left wrist: No acute fracture or malalignment. No significant degenerative changes. Soft tissues are within normal limits. IMPRESSION: 1. Unremarkable bilateral wrist radiographs. MACRO: None. Signed by: Sho Cavazos 04/29/2024 6:40 PM Dictation workstation: [id number] [facility] Work Phone: XR Wrist - bilateral 3 Views Ordered By: Sho Cavazos on 04-29-2024 [facility] Work Phone: XR WRIST 3+ VIEWS BILATERALo n 04-28-2024 XR WRIST 3+ VIEWS BILATERAL Interpreted By: Sho Cavazos, STUDY: Bilateral wrists, three views each. INDICATION: Signs/Symptoms:pain, numb, tingling. COMPARISON: None. ACCESSION NUMBER(S): [id number] ORDERING CLINICIAN: EDYTA CHAVEZ FINDINGS: Right wrist: No acute fracture or malalignment. No significant degenerative changes. Soft tissues are within normal limits. Left wrist: No acute fracture or malalignment. No significant degenerative changes. Soft tissues are within normal limits. IMPRESSION: 1. Unremarkable bilateral wrist radiographs. MACRO: None. Signed by: Sho Cavazos 04/29/2024 6:40 PM Dictation workstation: [id number] Normal [facility] XR Wrist - bilateral 3 Views on 04-28-2024 Radiology Study observation (narrative) [facility] Work Phone: CBC W Auto Differential pane l (Bld)on 03-24-2024 Basophils (Bld) [#/Vol] 0.07 x10*3/uL Normal 0.00-0.10 [facility] Comment on above: Performed By: #### 5 7021-8 #### OGDEN LEIF ([id number]) [facility] ([facility]) [address] [place] [address] 49023 Basophils/100 WBC (Bld) 0.8 % Normal 0.0-2.0 [facility] Comment on above: Performed By: #### 5 7021-8 #### MELVI YADAV ([id number]) [facility] ([facility]) [address] [place] [address] 28968 Eosinophils (Bld) [#/Vol] 0.63 x10*3/uL Normal 0.00-0.70 [facility] Comment on above: Performed By: #### 5 7021-8 #### MELVI YADAV ([id number]) [facility] ([facility]) [address] [place] [address] 88293 Eosinophils/100 WBC (Bld) 6.9 % Normal 0.0-6.0 [facility] Comment on above: Performed By: #### 5 7021-8 #### MELVI YADAV ([id number]) [facility] ([facility]) [address] [place] [address] 32961 Erythrocyte distribution width (RBC) [Ratio] 11.9 % Normal 11.5-14.5 [facility] Comment on above: Performed By: #### 5 7021-8 #### MELVI YADAV ([id number]) [facility] ([facility]) [address] [place] [address] 00761 Hematocrit (Bld) [Volume fraction] 44.9 % Normal 41.0-52.0 [facility] Comment on above: Performed By: #### 5 7021-8 #### MELVI YADAV ([id number]) [facility] ([facility]) [address] [place] [address] 65374 Hemoglobin (Bld) [Mass/Vol] 14.7 g/dL Normal 13.5-17.5 [facility] Comment on above: Performed By: #### 5 7021-8 #### MELVI YADAV ([id number]) [facility] ([facility]) [address] [place] [address] 67788 Immature granulocytes (Bld) [#/Vol] 0.03 x10*3/uL Normal 0.00-0.70 [facility] Comment on above: Performed By: #### 5 7021-8 #### MELVI YADAV ([id number]) [facility] ([facility]) [address] [place] [address] 81251 Immature granulocytes/100 WBC (Bld) 0.3 % Normal 0.0-0.9 [facility] Comment on above: Result Comment: Karen ture Granulocyte Count (IG) includes promyelocytes, myelocytes and metamyelocytes but does not include bands. Percent differential counts (%) should be interpreted in the context of the absolute cell counts (cells/UL). Performed By: #### 5 7021-8 #### MELVI YADAV ([id number]) [facility] ([facility]) [address] [place] [address] 56771 Lymphocytes (Bld) [#/Vol] 1.53 x10*3/uL Normal 1.20-4.80 [facility] Comment on above: Performed By: #### 5 7021-8 #### MELVI YADAV ([id number]) [facility] ([facility]) [address] [place] [address] 88106 Lymphocytes/100 WBC (Bld) 16.7 % Normal 13.0-44.0 [facility] Comment on above: Performed By: #### 5 7021-8 #### MELVI YADAV ([id number]) [facility] ([facility]) [address] [place] [address] 30460 MCH (RBC) [Entitic mass] 28.2 pg Normal 26.0-34.0 [facility] Comment on above: Performed By: #### 5 7021-8 #### MELVI YADAV ([id number]) [facility] ([facility]) [address] [place] [address] 35017 MCHC (RBC) [Mass/Vol] 32.7 g/dL Normal 32.0-36.0 [facility] Comment on above: Performed By: #### 5 7021-8 #### MELVI YADAV ([id number]) [facility] ([facility]) [address] [place] [address] 61154 MCV (RBC) [Entitic vol] 86 fL Normal 80-100 [facility] Comment on above: Performed By: #### 5 7021-8 #### MELVI YADAV ([id number]) [facility] ([facility]) [address] [place] [address] 85318 Monocytes (Bld) [#/Vol] 0.71 x10*3/uL Normal 0.10-1.00 [facility] Comment on above: Performed By: #### 5 7021-8 #### MELVI YADAV ([id number]) [facility] ([facility]) [address] [place] [address] 40168 Monocytes/100 WBC (Bld) 7.8 % Normal 2.0-10.0 [facility] Comment on above: Performed By: #### 5 7021-8 #### MELVI YADAV ([id number]) [facility] ([facility]) [address] [place] [address] 37944 Neutrophils (Bld) [#/Vol] 6.18 x10*3/uL Normal 1.20-7.70 [facility] Comment on above: Result Comment: Perc ent differential counts (%) should be interpreted in the context of the absolute cell counts (cells/uL). Performed By: #### 5 7021-8 #### MELVI YADAV ([id number]) [facility] ([facility]) [address] [place] [address] 59810 Neutrophils/100 WBC (Bld) 67.5 % Normal 40.0-80.0 [facility] Comment on above: Performed By: #### 5 7021-8 #### MELVI YADAV ([id number]) [facility] ([facility]) [address] [place] [address] 18162 Nucleated RBC/100 WBC (Bld) [Ratio] 0.0 /100 WBCs Normal 0.0-0.0 [facility] Comment on above: Performed By: #### 5 7021-8 #### MELVI YADAV ([id number]) [facility] ([facility]) [address] [place] [address] 09617 Platelets (Bld) [#/Vol] 348 x10*3/uL Normal 150-450 [facility] Comment on above: Performed By: #### 5 7021-8 #### MELVI YADAV ([id number]) [facility] ([facility]) [address] [place] [address] 11039 RBC (Bld) [#/Vol] 5.22 x10*6/uL Normal 4.50-5.90 [facility] Comment on above: Performed By: #### 5 7021-8 #### MELVI YADAV ([id number]) [facility] ([facility]) [address] [place] [address] WBC (Bld) [#/Vol] 9.2 x10*3/uL Normal 4.4-11.3 [place] Comment on above: Performed By: #### 5 7021-8 #### MELVI YADAV ([id number]) [facility] ([facility]) [address] [place] [address] Comprehensive metabolic 2000 panelon 03-24-2024 Albumin BCP dye [Mass/Vol] 4.0 g/dL Normal 3.4-5.0 [facility] Comment on above: Performed By: #### 2 4323-8 #### MELVI YADAV ([id number]) [facility] ([facility]) [address] [place] [address] ALP [Catalytic activity/Vol] 138 U/L High 33-120 [facility] Comment on above: Performed By: #### 2 432-8 #### MELVI YADAV ([id number]) [facility] ([facility]) [address] [place] [address] 08815 ALT With P-5'-P [Catalytic activity/Vol] 15 U/L Normal 10-52 [facility] Comment on above: Result Comment: Devika ents treated with Sulfasalazine may generate falsely decreased results for ALT. Performed By: #### 2 4323-8 #### MELVI YADAV ([id number]) [facility] ([facility]) [address] [place] [address] 58149 Anion gap [Moles/Vol] 11 mmol/L Normal 10-20 [facility] Comment on above: Performed By: #### 2 4323-8 #### MELVI YADAV ([id number]) [facility] ([facility]) [address] [place] [address] AST With P-5'-P [Catalytic activity/Vol] 11 U/L Normal 9-39 [facility] Comment on above: Performed By: #### 2 432-8 #### MELVI YADAV ([id number]) [facility] ([facility]) [address] [place] [address] Bilirubin [Mass/Vol] 0.8 mg/dL Normal 0.0-1.2 [facility] Comment on above: Performed By: #### 2 4322-8 #### MELVI YADAV ([id number]) [facility] ([facility]) [address] [place] [address] 04301 Calcium [Mass/Vol] 9.0 mg/dL Normal 8.6-10.3 [facility] Comment on above: Performed By: #### 2 4322-8 #### MELVI YADAV ([id number]) [facility] ([facility]) [address] [place] [address] Chloride [Moles/Vol] 102 mmol/L Normal 98-107 [facility] Comment on above: Performed By: #### 2 432-8 #### MELVI YADAV ([id number]) [facility] ([facility]) [address] [place] [address] CO2 [Moles/Vol] 29 mmol/L Normal 21-32 [facility] Comment on above: Performed By: #### 2 432-8 #### MELVI YADAV ([id number]) [facility] ([facility]) [address] [place] [address] Creatinine [Mass/Vol] 0.92 mg/dL Normal 0.50-1.30 [facility] Comment on above: Performed By: #### 2 4323-8 #### MELVI YADAV ([id number]) [facility] ([facility]) [address] [place] [address] GFR/1.73 sq M.predicted MDRD (S/P/Bld) [Vol rate/Area] mL/min/{1.73_m2} Normal >60 [facility] Comment on above: Result Comment: Calc ulations of estimated GFR are performed using the 2020 CKD-EPI Study Refit equation without the race variable for the IDMS-Traceable creatinine methods. https://jasn.asnjournals.org/content//ASN.0482876 988 Performed By: #### 2 4323-8 #### MELVI YADAV ([id number]) [facility] ([facility]) [address] [place] [address] 61601 Glucose [Mass/Vol] 112 mg/dL High 74-99 [facility] Comment on above: Performed By: #### 2 4323-8 #### MELVI YADAV ([id number]) [facility] ([facility]) [address] [place] [address] 37313 Potassium [Moles/Vol] 4.1 mmol/L Normal 3.5-5.3 [facility] Comment on above: Performed By: #### 2 4323-8 #### MELVI YADAV ([id number]) [facility] ([facility]) [address] [place] [address] 59299 Protein [Mass/Vol] 7.0 g/dL Normal 6.4-8.2 [facility] Comment on above: Performed By: #### 2 4323-8 #### MELVI YADAV ([id number]) [facility] ([facility]) [address] [place] [address] 03718 Sodium [Moles/Vol] 138 mmol/L Normal 136-145 [facility] Comment on above: Performed By: #### 2 4323-8 #### MELVI YADAV ([id number]) [facility] ([facility]) [address] [place] [address] 66377 Urea nitrogen [Mass/Vol] 11 mg/dL Normal 6-23 [facility] Comment on above: Performed By: #### 2 4323-8 #### MELVI YADAV ([id number]) [facility] ([facility]) [address] [place] [address] 54256 HbA1c (Bld) [Mass fraction]o n 03-24-2024 Average glucose Estimated from glycated hemoglobin (Bld) [Mass/Vol] 97 mg/dL Normal Not Established [facility] Comment on above: Order Comment: Diagn osis of Diabetes-Adults Non-Diabetic: < or = 5.6% Increased risk for developing diabetes: 5.7-6.4% Diagnostic of diabetes: > or = 6.5% Monitoring of Diabetes Age (y)....................... Therapeutic Goal (%) Adults: >18.........................<7.0 Pediatrics: 13-18...................<7.5 Pediatrics: 7-12....................<8.0 Pediatrics: 0-6..................... 7.5-8.5 [employer]. Diabetes Care 33(S1), Oct 2009 Performed By: #### 4 548-4 #### OGDEN LEIF ([id number]) [facility] ([facility]) [address] [place] [id number] Hemoglobin A1c/Hemoglobin.to bar 03-24-2024 HbA1c (Bld) [Mass fraction] 5.0 % Normal see below [facility] Comment on above: Order Comment: Diagn osis of Diabetes-Adults Non-Diabetic: < or = 5.6% Increased risk for developing diabetes: 5.7-6.4% Diagnostic of diabetes: > or = 6.5% Monitoring of Diabetes Age (y)....................... Therapeutic Goal (%) Adults: >18.........................<7.0 Pediatrics: 13-18...................<7.5 Pediatrics: 7-12....................<8.0 Pediatrics: 0-6..................... 7.5-8.5 [employer]. Diabetes Care 33(S1), Oct 2009 Performed By: #### 4 548-4 #### MELVI YAADV ([id number]) [facility] ([facility]) [address] [place] [address] 42787 Lipid 1996 panelon 4 Cholesterol [Mass/Vol] 206 mg/dL High 0-199 [facility] Comment on above: Result Comment: Age Desirable Borderline High High 0-19 Y 0 - 169 170 - 199 >/= 200 20-24 Y 0 - 189 190 - 224 >/= 225 >24 Y 0 - 199 200 - 239 >/= 240 All ranges are based on fasting samples. Specific therapeutic targets will vary based on patient-specific cardiac risk. Pediatric guidelines reference:Pediatrics 2011, 128(S5).Adult guidelines reference: NCEP ATPIII Guidelines,SCARLET 2001, 258:2486-97 Venipuncture immediately after or during the administration of Metamizole may lead to falsely low results. Testing should be performed immediately prior to Metamizole dosing. Performed By: #### 2 4331-1 #### MELVI YADAV ([id number]) [facility] ([facility]) [address] [place] [address] 80390 Cholesterol in HDL [Mass/Vol] 41.0 mg/dL Normal [facility] Comment on above: Result Comment: Age Very Low Low Normal High 0-19 Y < 35 < 40 40-45 ---- 20-24 Y ---- < 40 >45 ---- >24 Y ---- < 40 40-60 >60 Performed By: #### 2 4331-1 #### MELVI YADAV ([id number]) [facility] ([facility]) [facility] [place] [address] Cholesterol in LDL [Mass/Vol] 143 mg/dL High <=99 [facility] Comment on above: Result Comment: Near Borderline AGE Desirable Optimal High High Very High 0-19 Y 0 - 109 --- 110-129 >/= 130 ---- 20-24 Y 0 - 119 --- 120-159 >/= 160 ---- >24 Y 0 - 99 100-129 130-159 160-189 >/=190 Performed By: #### 2 4331-1 #### MELVI YADAV ([id number]) [facility] ([facility]) [address] [place] [address] 90557 Cholesterol in VLDL [Mass/Vol] 22 mg/dL Normal 0-40 [facility] Comment on above: Performed By: #### 2 4331-1 #### MELVI YADAV ([id number]) [facility] ([facility]) [address] [place] [address] 33053 CHOLESTEROL/HDL RATIO 5.0 Normal [facility] Comment on above: Result Comment: Ref Values Desirable < 3.4 High Risk > 5.0 Performed By: #### 2 4331-1 #### MELVI YADAV ([id number]) [facility] ([facility]) [address] [place] [address] 34833 NON HDL CHOLESTEROL 165 mg/dL High 0-149 [place] Comment on above: Result Comment: Age Desirable Borderline High High Very High 0-19 Y 0 - 119 120 - 144 >/= 145 >/= 160 20-24 Y 0 - 149 150 - 189 >/= 190 ---- >24 Y 30 mg/dL above LDL Cholesterol goal Performed By: #### 2 4331-1 #### MELVI YADAV ([id number]) [facility] ([facility]) [address] [place] [address] 77291 Triglyceride [Mass/Vol] 112 mg/dL Normal 0-149 [facility] Comment on above: Result Comment: Age Desirable Borderline High High Very High 0 D-90 D 19 - 174 ---- ---- ---- 91 D- 9 Y 0 - 74 75 - 99 >/= 100 ---- 10-19 Y 0 - 89 90 - 129 >/= 130 ---- 20-24 Y 0 - 114 115 - 149 >/= 150 ---- >24 Y 0 - 149 150 - 199 200- 499 >/= 500 Venipuncture immediately after or during the administration of Metamizole may lead to falsely low results. Testing should be performed immediately prior to Metamizole dosing. Performed By: #### 2 4331-1 #### MELVI YADAV ([id number]) [facility] ([facility]) [facility] [place] [address] TSH WITH REFLEX TO FREE T4 I F ABNORMALon 03-24-2024 TSH Qn 1.58 m[IU]/L Normal 0.44-3.98 [facility] Comment on above: Order Comment: TSH t esting is performed using different testing methodology at [facility] than [facility]. Direct result comparisons should only be made within the same method. Performed By: #### T HYDS #### MELVI YADAV ([id number]) [facility] ([facility]) [facility] [place] [address] Surgical pathology studyon 0 02-16-2024 Surgical pathology study Pathology report.total SEE COMMENT Surgical Pathology Case: [id number] Authorizing Provider: Kenneth Peguero MD Collected: 02/16/2024 1130 Ordering Location: [facility] Received: 02/16/2024 1719 Center OR Pathologist: Teja Merritt MD Specimen: SOFT TISSUE MASS RESECTION, Scrotal Mass Path report.final diagnosis SEE COMMENT A. DESIGNATED SCROTAL MASS, EXCISION: -- EPIDERMAL INCLUSION CYST, 1.1 CM, WITH ADJACENT FOREIGN BODY GIANT CELL REACTION. Laboratory comment By the signature on this report, the individual or group listed as making the Final Interpretation/Diagno sis certifies that they have reviewed this case. Path report.relevant Hx SEE COMMENT Pre-op diagnosis: Scrotal cyst [L72.9] Presented in January 2024 with a scrotal lump increasing in size. Physical exam on 01/27/2024 showed a large 3 cm sebaceous cyst on scrotum. The 3 cm cyst was excised on 02/16/2024. Path report.gross observation SEE COMMENT A: Received in formalin, labeled with the patient's name and hospital number and scrotal mass, is an un-oriented ellipse of domínguez, wrinkled, hair-bearing skin and subcutaneous tissue, measuring 1.9 x 1.6 cm and excised to a depth of 1.1 cm. The skin surface is unremarkable. The subcutaneous portion is remarkable for a bulging, white domínguez and smooth, intact cyst wall. The resection margin is inked entirely blue. Sections reveal a cystic space filled with friable white-domínguez material. The cyst lining measures 0.1 to 0.2 cm in thickness and the cavity measures 1.1 cm in greatest dimension. The specimen is submitted entirely in 4 cassettes. KRS Summary of Cassettes: Specimen Label Site A 1 Skin tips, en face 2-4 Remainder of specimen Normal [facility] Comment on above: Order Comment: Pre-o p diagnosis: Scrotal cyst [L72.9] MR Brain WO contraston 01-18 Unremarkable MRI of the brain. This study was interpreted at [facility]. MACRO: None Signed by: Nicolas Rodríguez 01/19/2024 9:40 AM Dictation workstation: [id number] MMODAL Interpreted By: Nicolas Rodríguez, STUDY: MR BRAIN WO IV CONTRAST; 01/18/2024 6:49 pm INDICATION: Signs/Symptoms:histor y of concussion, chronic headaches. COMPARISON: None. ACCESSION NUMBER(S): [id number] ORDERING CLINICIAN: FOX ARNETT TECHNIQUE: Axial T2, FLAIR, DWI, gradient echo T2 and sagittal and coronal T1 weighted images of brain were acquired. FINDINGS: CSF Spaces: The ventricles, sulci and basal cisterns are within normal limits. There is no abnormal extra-axial fluid collection. Parenchyma: There is no diffusion restriction abnormality to suggest acute infarct. There is no focal parenchymal signal abnormality. There is no mass effect or midline shift. Paranasal Sinuses and Mastoids: There is a small mucosal retention cysts in the floor of the left maxillary sinus, otherwise the visualized paranasal sinuses and mastoid air cells are essentially clear. MMODAL Nicolas Rodríguez MD - 01/19/2024 Interpreted By: Nicolas Rodríguez, STUDY: MR BRAIN WO IV CONTRAST; 01/18/2024 6:49 pm INDICATION: Signs/Symptoms:histor y of concussion, chronic headaches. COMPARISON: None. ACCESSION NUMBER(S): [id number] ORDERING CLINICIAN: FOX ARNETT TECHNIQUE: Axial T2, FLAIR, DWI, gradient echo T2 and sagittal and coronal T1 weighted images of brain were acquired. FINDINGS: CSF Spaces: The ventricles, sulci and basal cisterns are within normal limits. There is no abnormal extra-axial fluid collection. Parenchyma: There is no diffusion restriction abnormality to suggest acute infarct. There is no focal parenchymal signal abnormality. There is no mass effect or midline shift. Paranasal Sinuses and Mastoids: There is a small mucosal retention cysts in the floor of the left maxillary sinus, otherwise the visualized paranasal sinuses and mastoid air cells are essentially clear. IMPRESSION: Unremarkable MRI of the brain. This study was interpreted at [facility]. MACRO: None Signed by: Nicolas Rodríguez 01/19/2024 9:40 AM Dictation workstation: [id number] [facility] Work Phone: MR Brain WO contrastOrdered By: Nicolas Rodríguez on 01-19-2024 [facility] Work Phone: MR BRAIN WO IV CONTRASTon MR BRAIN WO IV CONTRAST Interpreted By: Nicolas Rodríguez, STUDY: MR BRAIN WO IV CONTRAST; 01/18/2024 6:49 pm INDICATION: Signs/Symptoms:histor y of concussion, chronic headaches. COMPARISON: None. ACCESSION NUMBER(S): [id number] ORDERING CLINICIAN: FOX ARNETT TECHNIQUE: Axial T2, FLAIR, DWI, gradient echo T2 and sagittal and coronal T1 weighted images of brain were acquired. FINDINGS: CSF Spaces: The ventricles, sulci and basal cisterns are within normal limits. There is no abnormal extra-axial fluid collection. Parenchyma: There is no diffusion restriction abnormality to suggest acute infarct. There is no focal parenchymal signal abnormality. There is no mass effect or midline shift. Paranasal Sinuses and Mastoids: There is a small mucosal retention cysts in the floor of the left maxillary sinus, otherwise the visualized paranasal sinuses and mastoid air cells are essentially clear. IMPRESSION: Unremarkable MRI of the brain. This study was interpreted at [facility]. MACRO: None Signed by: Nicolas Rodríguez 01/19/2024 9:40 AM Dictation workstation: [id number] [facility] MR Brain WO contraston 01-17 Radiology Study observation (narrative) [facility] Work Phone: US SCROTUM WITH DOPPLERon US SCROTUM WITH DOPPLER Interpreted By: Lucas Perez, STUDY: US SCROTUM WITH DOPPLER; 01/15/2024 1:22 pm INDICATION: Signs/Symptoms:scrota l lump. COMPARISON: None. ACCESSION NUMBER(S): [id number] ORDERING CLINICIAN: FOX ARNETT TECHNIQUE: Multiple grayscale and color Doppler ultrasonographic images were obtained through the scrotum. Doppler waveform images were also obtained through the testicles bilaterally. FINDINGS: RIGHT HEMISCROTUM: Trace right-sided hydrocele is present. RIGHT TESTICLE: The right testicle measures 3.2 x 1.9 x 1.8 cm. The right testicle demonstrates a homogeneous echotexture and normal contour. Normal vascularity and color Doppler waveforms are observed in the right testicle. RIGHT EPIDIDYMIS: The right epididymis measures at 0.6 x 0.9 x 0.8 cm and is within normal limits for appearance. LEFT HEMISCROTUM: Trace left-sided hydrocele is present. LEFT TESTICLE: The left testicle measures 3.1 x 1.9 x 1.2 cm. The left testicle demonstrates a homogeneous echotexture and normal contour. Normal vascularity and color Doppler waveforms are observed in the left testicle. LEFT EPIDIDYMIS: The left epididymis measures at 0.6 x 0.8 x 0.9 cm and is within normal limits for appearance. IMPRESSION: 1. Trace bilateral hydroceles, as above. 2. Otherwise unremarkable ultrasound appearance of the testes and scrotum. MACRO: None Signed by: Lucas Perez 01/18/2024 11:36 AM Dictation workstation: [id number] [facility] Vital Signs Date Time Vital Sign Value Performing Clinician Facility 06-08-2025 14:36-0400 Body height 168.[address] Fox Arnett DO Work Phone: [facility] 06-08-2025 14:36-0400 Body mass index (BMI) [Ratio] 42.1 kg/m2 Dr. Fox Arnett DO Work Phone: [facility] 06-08-2025 14:36-0400 Body temperature 98.2 [degF] Dr. Fox Arnett DO Work Phone: [facility] 06-08-2025 14:36-0400 Body weight 120.[address] Fox Arnett DO Work Phone: [facility] 06-08-2025 14:36-0400 Diastolic blood pressure 72 mm[Hg] Dr. Fox Arnett DO Work Phone: [facility] 06-08-2025 14:36-0400 Heart rate 67 /min Dr. Fox Arnett DO Work Phone: [facility] 06-08-2025 14:36-0400 Respiratory rate 15 /min Dr. Fox Arnett DO Work Phone: [facility] 06-08-2025 14:36-0400 SaO2% (BldA) [Mass fraction] 99 % Dr. Fox Arnett DO Work Phone: [facility] 06-08-2025 14:36-0400 Systolic blood pressure 104 mm[Hg] Dr. Fox Arnett DO Work Phone: [facility] 03-23-2025 14:31-0400 Body height 168.[address] Fox Arnett DO Work Phone: [facility] 03-23-2025 14:31-0400 Body mass index (BMI) [Ratio] 42.4 kg/m2 Dr. Fox Arnett DO Work Phone: [facility] 03-23-2025 14:31-0400 Body temperature 98.2 [degF] Dr. Fox Arnett DO Work Phone: [facility] 03-23-2025 14:31-0400 Body weight 121.[address] Fox Arnett DO Work Phone: [facility] 03-23-2025 14:31-0400 Diastolic blood pressure 84 mm[Hg] Dr. Fox Arnett DO Work Phone: [facility] 03-23-2025 14:31-0400 Heart rate 84 /min Dr. Fox Arnett DO Work Phone: [facility] 03-23-2025 14:31-0400 Respiratory rate 15 /min Dr. Fox Arnett DO Work Phone: [facility] 03-23-2025 14:31-0400 SaO2% (BldA) [Mass fraction] 99 % Dr. Fox Arnett DO Work Phone: [facility] 03-23-2025 14:31-0400 Systolic blood pressure 124 mm[Hg] Dr. Fox Arnett DO Work Phone: [facility] 12-01-2024 13:36-0500 Body mass index (BMI) [Ratio] 43.2 kg/m2 Dr. Fox Arnett DO Work Phone: [facility] 12-01-2024 13:36-0500 Body temperature 98 [degF] Dr. Fox Arnett DO Work Phone: [facility] 12-01-2024 13:36-0500 Body weight 123.[address] Fox Arnett DO Work Phone: [facility] 12-01-2024 13:36-0500 Diastolic blood pressure 84 mm[Hg] Dr. Fox Arnett DO Work Phone: [facility] 12-01-2024 13:36-0500 Heart rate 85 /min Dr. Fox Arnett DO Work Phone: [facility] 12-01-2024 13:36-0500 Respiratory rate 15 /min Dr. Fox Arnett DO Work Phone: [facility] 12-01-2024 13:36-0500 SaO2% (BldA) [Mass fraction] 96 % Dr. Fox Arnett DO Work Phone: [facility] 12-01-2024 13:36-0500 Systolic blood pressure 136 mm[Hg] Dr. Fox Arnett DO Work Phone: [facility] 10-05-2024 14:49-0500 Body height 172.7 cm Fox Arnett DO Work Phone: [facility] 10-05-2024 14:49-0500 Body mass index (BMI) [Ratio] 40.9 kg/m2 Fox Arnett DO Work Phone: [facility] 10-05-2024 14:49-0500 Body weight 122.02 kg Fox Arnett DO Work Phone: 9(604)811-454522 [place] [address] 10-05-2024 14:49-0500 Diastolic blood pressure 79 mm[Hg] Fox Arnett DO Work Phone: [facility] 10-05-2024 14:49-0500 Heart rate 80 /min Fox Arnett DO Work Phone: [facility] 10-05-2024 14:49-0500 Systolic blood pressure 127 mm[Hg] Fox Arnett DO Work Phone: [facility] 04-14-2024 14:41-0400 Body height 172.7 cm Fox Arnett DO Work Phone: [facility] 04-14-2024 14:41-0400 Body mass index (BMI) [Ratio] 41.51 kg/m2 Fox Arnett DO Work Phone: [facility] 04-14-2024 14:41-0400 Body weight 123.83 kg Fox Arnett DO Work Phone: [facility] 04-14-2024 14:41-0400 Diastolic blood pressure 80 mm[Hg] Fox Arnett DO Work Phone: [facility] 04-14-2024 14:41-0400 Heart rate 87 /min Fox Kaplaner DO Work Phone: [facility] 04-14-2024 14:41-0400 Systolic blood pressure 120 mm[Hg] Fox Oberhauser DO Work Phone: [facility] 04-13-2024 15:28-0400 Body mass index (BMI) [Ratio] 41.66 kg/m2 Kenneth Peguero MD Work Phone: [facility] 04-13-2024 15:28-0400 Body weight 124.29 kg Kenneth Peguero MD Work Phone: 0(123)[phone] [place] [address] 04-13-2024 15:28-0400 Respiratory rate 16 /min Kenneth Peguero MD Work Phone: 1(800)928-483359 [place] [address] 03-03-2024 13:34-0400 Body mass index (BMI) [Ratio] 41.66 kg/m2 Kenneth Peguero MD Work Phone: [facility] 03-03-2024 13:34-0400 Body weight 124.29 kg Kenneth Peguero MD Work Phone: 9(388)957-449559 [place] [address] 03-03-2024 13:34-0400 Respiratory rate 16 /min Kenneth Peguero MD Work Phone: 9(730)472-380259 [place] [address] 02-16-2024 13:45-0400 Diastolic blood pressure 72 mm[Hg] Kenneth Peguero MD Work Phone: [facility] 02-16-2024 13:45-0400 Heart rate 69 /min Kenneth Peguero MD Work Phone: 0(937)119-[address]356 [place] [address] 02-16-2024 13:45-0400 Respiratory rate 16 /min Kenneth Peguero MD Work Phone: 9(034)[phone] [place] [address] 02-16-2024 13:45-0400 SaO2% (BldA) [Mass fraction] 97 % Kenneth Peguero MD Work Phone: 0(496)[phone] [place] [address] 02-16-2024 13:45-0400 Systolic blood pressure 112 mm[Hg] Kenneth Peguero MD Work Phone: [facility] 02-16-2024 13:00-0400 Body temperature 97 [degF] Kenneth Peguero MD Work Phone: [facility] 02-10-2024 12:11-0400 Body mass index (BMI) [Ratio] 41.81 kg/m2 Kenneth Peguero MD Work Phone: [facility] 02-10-2024 12:11-0400 Body weight 124.74 kg Kenneth Peguero MD Work Phone: [facility] 01-13-2024 13:51-0400 Body height 172.7 cm Fox Oberhauser DO Work Phone: [facility] 01-13-2024 13:51-0400 Body mass index (BMI) [Ratio] 41.97 kg/m2 Fox Oberhauser DO Work Phone: [facility] 01-13-2024 13:51-0400 Body weight 125.19 kg Fox Oberhauser DO Work Phone: [facility] 01-13-2024 13:51-0400 Diastolic blood pressure 80 mm[Hg] Fox Oberhauser DO Work Phone: [facility] 01-13-2024 13:51-0400 Heart rate 73 /min Fox Oberhauser DO Work Phone: [facility] 01-13-2024 13:51-0400 Systolic blood pressure 130 mm[Hg] Fox Oberhauser DO Work Phone: [facility] 09-27-2018 17:37-0500 BMI (Body Mass Index) 44.28 kg/m2 [facility] Work Phone: 09-27-2018 17:37-0500 Body Temperature 98.1 [degF] [facility] Work Phone: 09-27-2018 17:37-0500 BP Diastolic 89 mm[Hg] [facility] Work Phone: 09-27-2018 17:37-0500 BP Systolic 140 mm[Hg] [facility] Work Phone: 09-27-2018 17:37-0500 Height 170.2 cm [facility] Work Phone: 09-27-2018 17:37-0500 Pulse (Heart Rate) 88 /min [facility] Work Phone: 09-27-2018 17:37-0500 Pulse Oximetry 96 % [facility] Work Phone: 09-27-2018 17:37-0500 Respiratory Rate 16 /min [facility] Work Phone: 09-27-2018 17:37-0500 Weight 128.23 kg [facility] Work Phone: 03-29-2018 16:27-0400 BMI (Body Mass Index) 40.32 kg/m2 Keny Berger [facility] 03-29-2018 16:27-0400 Body Temperature 98.4 [degF] Keny Berger [facility] 03-29-2018 16:27-0400 BP Diastolic 86 mm[Hg] Keny Berger [facility] 03-29-2018 16:27-0400 BP Systolic 120 mm[Hg] Keny Berger [facility] 03-29-2018 16:27-0400 Height 172.7 cm Keny Berger [facility] 03-29-2018 16:27-0400 Pulse (Heart Rate) 64 /min Keny Berger [facility] 03-29-2018 16:27-0400 Respiratory Rate 18 /min Keny Berger [facility] 03-29-2018 16:27-0400 Weight 120.29 [facility] Encounter Date Encounter Type Care Provider Facility Start: 08-21-2025 End: 08-21-2025 ambulatory Gallo Robles Facility:[facility] Start: 06-08-2025 End: 06-08-2025 Patient encounter procedure Mary Jane FLORES -[facility] Work Phone: Start: 06-08-2025 End: 06-08-[address] Fox Arnett DO Work Phone: -[facility] Start: 03-23-2025 End: 03-23-2025 Patient encounter procedure Mary Jane FLORES -[facility] Work Phone: Start: 03-23-2025 End: 03-23-[address] Fox Arnett DO Work Phone: [facility] Work Phone: Start: 12-01-2024 End: 12-01-[address] Gallo Robles MD -[facility] Work Phone: Start: 12-01-2024 End: 12-01-2024 ambulatory Fox Kaplan Facility:[facility] Start: 10-26-2024 End: 10-26-2024 ambulatory Fox Arnett Facility:[facility] Start: 10-05-2024 End: 10-05-2024 Office outpatient visit 25 minutes Fox Arnett DO Work Phone: [facility] Comment on above: Intractable migraine with aura without status migrainosus (Primary Dx); Hydrocele, unspecified hydrocele type; PTSD (post-traumatic stress disorder) Start: 10-05-2024 End: 10-05-2024 ambulatory FOX [facility] Amb[facility] Start: 09-29-2024 End: 09-29-2024 ambulatory [facility] Facility:[facility] Start: 09-08-2024 End: 09-08-2024 ambulatory [facility] Facility:[facility] Start: 07-11-2024 End: 07-11-2024 ambulatory [facility] Start: 07-05-2024 End: 07-05-2024 ambulatory [facility] Start: 07-05-2024 End: 07-05-2024 Office outpatient visit 25 minutes Edyta Lucia Chavez CV/CVN CV TSC SYSTEM OPERATOR-[facility]LE[facility]ER Work Phone: [facility] Comment on above: Bilateral hand numbn ess (Primary Dx); Bilateral hand pain Start: 06-23-2024 End: 06-23-2024 ambulatory [facility] Start: 06-15-2024 End: 06-15-2024 ambulatory [facility] Start: 06-08-2024 End: 06-08-2024 ambulatory [facility] Start: 06-01-2024 End: 06-01-2024 ambulatory [facility] Start: 05-30-2024 End: 05-30-2024 ambulatory FOX ARNET[facility] Start: 05-30-2024 End: 05-30-2024 Patient encounter procedure Fox Arnett DO Work Phone: [facility] Comment on above: Pain in both upper e xtremities (Primary Dx) Start: 05-25-2024 End: 05-25-2024 ambulatory [facility] Start: 05-23-2024 End: 05-23-2024 ambulatory [facility] Start: 04-28-2024 End: 04-28-2024 Subsequent hospital visit by physician Landon Hoffmany100 X-Ray [facility] Comment on above: Bilateral hand numbn ess Start: 04-28-2024 End: 04-28-2024 ambulatory [facility] Start: 04-28-2024 End: 04-28-2024 Office outpatient new 45 minutes Edyta M Chavez CV/CVN CV TSC SYSTEM OPERATOR-PALLETI[facility]ER Work Phone: [facility] Comment on above: Bilateral hand numbn ess (Primary Dx); Bilateral hand pain Start: 04-15-2024 End: 04-15-2024 Transcribe Orders Fox Arnett DO Work Phone: [facility] Comment on above: Bilateral hand numbn ess (Primary Dx) Start: 04-14-2024 End: 04-14-2024 Office outpatient visit 25 minutes Fox Arnett DO Work Phone: [facility] Comment on above: Bilateral hand numbn ess (Primary Dx); Chronic migraine with aura without status migrainosus, not intractable; Nausea Start: 04-14-2024 End: 04-14-2024 ambulatory [facility] Amb[facility] Start: 04-13-2024 End: 04-13-2024 Office outpatient visit 15 minutes Kenneth Peguero MD Work Phone: [facility] Comment on above: Nocturia; Hydrocele, unspecified hydrocele type Start: 04-13-2024 End: 04-13-2024 ambulatory [facility] Amb[facility] Start: 03-24-2024 End: 03-24-2024 ambulatory [facility] Start: 03-24-2024 End: 03-24-2024 Encounter for general adult medical examination without abnormal findings [facility] Start: 03-03-2024 End: 03-03-2024 Office outpatient visit 15 minutes Kenneth Peguero MD Work Phone: [facility] Comment on above: Scrotal sebaceous cy st (Primary Dx); Scrotal cyst Start: 03-03-2024 End: 03-03-2024 ambulatory [facility] Start: 02-16-2024 End: 02-16-2024 Subsequent hospital visit by physician Kenneth Peguero MD Work Phone: [facility] [place] Comment on above: Scrotal cyst (Primar y Dx) Start: 02-05-2024 ambulatory [facility] Start: 01-27-2024 End: 01-27-2024 ambulatory [facility] Start: 01-18-2024 End: 01-18-2024 Subsequent hospital visit by physician [facility] Comment on above: History of concussio n; Chronic migraine without aura without status migrainosus, not intractable Start: 01-18-2024 End: 01-18-2024 ambulatory FOX L [facility] Start: 01-15-2024 End: 01-15-2024 ambulatory FOX [facility] Start: 01-15-2024 End: 01-15-2024 Subsequent hospital visit by physician Landon Mcmanus 1 [facility] Comment on above: Testicle lump Start: 01-13-2024 End: 01-13-2024 Initial preventive medicine new pt age 18-39yrs Fox Arnett DO Work Phone: [facility] Comment on above: Wellness examination (Primary Dx); Testicle lump; Screening for diabetes mellitus; Screening for thyroid disorder; Screening for lipid disorders; History of concussion; Chronic migraine without aura without status migrainosus, not intractable Start: 01-13-2024 End: 01-13-2024 Patient encounter status Fox Arnett DO Work Phone: [facility] Work Phone: Start: 01-13-2024 End: 01-13-2024 ambulatory [facility] Start: 01-13-2024 End: 01-13-2024 Encounter for general adult medical examination without abnormal findings [facility] Start: 08-22-2021 End: 08-22-2021 Emergency department patient visit MARITZA PLASCENCIA [facility] Start: 08-01-2021 End: 08-01-2021 Emergency department patient visit ALTAGRACIA DICKERSON [facility] Start: 10-19-2018 End: 10-19-2018 Telephone encounter Jose[facility] Comment on above: Results Start: 10-17-2018 Patient encounter procedure YASMINE COLBY [facility] Start: 09-27-2018 Patient encounter procedure CLEMENTINA BOO [facility] Start: 09-27-2018 End: 09-27-2018 Office outpatient new 20 minutes Clementina Boo Work Phone: [facility] Comment on above: Gastroesophageal ref lux disease without esophagitis (Primary Dx); Nausea Start: 03-29-2018 End: 03-29-2018 Office outpatient visit 15 minutes Keny Berger Work Phone: [facility] Procedures Date Procedure Procedure Detail Performing Clinician Start: 05-25-2024 Follow-up visit Follow-up EDYTA M DENISE Start: 03-24-2024 Lipid 1996 panel - S edwin or Plasma Kenneth Peguero MD Work Phone: Start: 02-16-2024 PULSE OXIMETRY, SPOT Nicole kell Peguero MD Work Phone: Start: 01-27-2024 AMB REFERRAL TO UROLOGY FOX ARNETT Start: 01-18-2024 MR BRAIN WO IV CONTRAST FOX ARNETT Start: 01-18-2024 Mri brain brain stem w/o contrast material Fox Arnett DO Work Phone: Start: 01-15-2024 US SCROTUM WITH DOPPLER FOX ARNETT Start: 10-17-2018 Throat culture YASMINE MONTILLA Comment on above: Performed By: #### T HRC ####Testing performed at [address] [address] Plan of Treatment Date Care Activity Detail Author Start: 2047 Zoster Vaccines (1 of 2) Zoster Vacc vipul (1 of 2) [facility] Start: 03-24-2029 Lipid panel Lipid Panel [facility] Start: 03-24-2025 Diabetes mellitus screening Diabetes Screening [facility] Start: 01-13-2025 Yearly Adult Physical Yearly Adult P hysical [facility] Start: 01-12-2025 History and physical examination, annual for health maintenance Wellness Visit [facility] Start: 10-05-2024 End: 10-05-2024 Patient encounter procedure 10/05/2024 3:00 PM EST Office Visit [facility] [address] [place] [address] Fox Arnett DO [address] [facility] [place] [address] [facility] Start: 07-11-2024 End: 07-11-2024 ambulatory 07/11/2024 10:00 AM EDT Treatment [facility] [place] [address] [place] [address] [address] [facility] [place] [address] [facility] Start: 06-19-2024 COVID-19 Vaccine ( season) COVID-19 Vaccine ( season) [facility] Start: 06-19-2024 COVID-19 Vaccine ( season) COVID-19 Vaccine () [facility] Start: 06-19-2024 Influenza vaccination [facility] Start: 05-26-2024 End: 05-26-2024 Patient encounter procedure 05/26/2024 3:30 PM EDT Office Visit [facility] [address] [place] [id number] Edyta Chavez, CV/CVN CV TSC SYSTEM [facility] [address] [facility] [place] [address] [facility] Start: 05-23-2024 End: 05-23-2024 ambulatory 05/23/2024 1:15 PM EDT Evaluation [address] [phone] [place] [address] [place] [facility] [place] [address] [facility] Start: 04-14-2024 End: 04-14-2024 Patient encounter procedure 04/14/2024 2:40 PM EDT Office Visit [facility] [address] [place] [address] Fox Arnett, [address] [facility] [place] [address] [facility] Start: 04-14-2024 End: 04-14-2025 EMG & nerve conduction EMG & nerve conduction Neurology Routine Bilateral hand numbness Expected: 04/14/2024 (Approximate), Expires: 04/14/2025 [facility] Service Area Work Phone: Comment on above: Expected: 04/14/2024 (Approximate), Expires: 04/14/2025 Start: 04-14-2024 End: 04-14-2025 XR Cervical spine 2 or 3 Views XR cervical spine 2-3 views Imaging Routine Bilateral hand numbness Expected: 04/14/2024, Expires: 04/14/2025 [facility] Work Phone: Comment on above: Expected: 04/14/2024 , Expires: 04/14/2025 Start: 04-14-2024 End: 04-14-2025 XR Lumbar spine 2 or 3 Views XR lumbar spine 2-3 views Imaging Routine Bilateral hand numbness Expected: 04/14/2024, Expires: 04/14/2025 [facility] Work Phone: Comment on above: Expected: 04/14/2024 , Expires: 04/14/2025 Start: 04-13-2024 End: 04-13-2024 Patient encounter procedure 04/13/2024 3:30 PM EDT Office Visit [facility] [address] [phone] Kenneth Peguero MD [address] [place] [address] [facility] Start: 01-27-2024 End: 01-27-2024 Patient encounter procedure 01/27/2024 2:00 PM EDT Office Visit [facility] [address] [phone] Kenneth Peguero MD [address] [place] [address] [facility] Start: 01-18-2024 End: 01-18-2024 Patient encounter procedure 01/18/2024 6:00 PM EDT Appointment [address] [phone] [facility] Start: 01-15-2024 End: 01-15-2024 Patient encounter procedure 01/15/2024 12:45 PM EDT Appointment [address] [phone] [facility] Start: 01-13-2024 End: 01-12-2025 CBC W Auto Differential panel - Blood CBC and Auto Differential Lab Routine Wellness examination Expected: 01/13/2024 (Approximate), Expires: 01/12/2025 [facility] Work Phone: Comment on above: Expected: 01/13/2024 (Approximate), Expires: 01/12/2025 Start: 01-13-2024 End: 01-12-2025 Comprehensive metabolic 2000 panel - Serum or Plasma Comprehensive metabolic panel Lab Routine Wellness examination Expected: 01/13/2024 (Approximate), Expires: 01/12/2025 [facility] Service Area Work Phone: Comment on above: Expected: 01/13/2024 (Approximate), Expires: 01/12/2025 Start: 01-13-2024 End: 01-12-2025 Hemoglobin A1c/Hemoglobin.total in Blood Hemoglobin A1C Lab Routine Screening for diabetes mellitus Expected: 01/13/2024 (Approximate), Expires: 01/12/2025 [facility] Work Phone: Comment on above: Expected: 01/13/2024 (Approximate), Expires: 01/12/2025 Start: 01-13-2024 End: 01-12-2025 Lipid 1996 panel - Serum or Plasma Lipid Panel Lab Routine Screening for lipid disorders Expected: 01/13/2024 (Approximate), Expires: 01/12/2025 [facility] Work Phone: Comment on above: Expected: 01/13/2024 (Approximate), Expires: 01/12/2025 Start: 01-13-2024 End: 01-12-2025 MR Brain WO contrast MR brain wo IV contrast Imaging Routine History of concussion Chronic migraine without aura without status migrainosus, not intractable Expected: 01/13/2024, Expires: 01/12/2025 [facility] Work Phone: Comment on above: Expected: 01/13/2024 , Expires: 01/12/2025 Start: 01-13-2024 End: 01-12-2025 TSH with reflex to Free T4 if abnormal TSH with reflex to Free T4 if abnormal Lab Routine Screening for thyroid disorder Expected: 01/13/2024 (Approximate), Expires: 01/12/2025 [facility] Work Phone: Comment on above: Expected: 01/13/2024 (Approximate), Expires: 01/12/2025 Start: 01-13-2024 End: 01-12-2025 US Scrotum and testicle US scrotum w doppler Imaging Routine Testicle lump Expected: 01/13/2024, Expires: 01/12/2025 [facility] Work Phone: Comment on above: Expected: 01/13/2024 , Expires: 01/12/2025 Start: 06-19-2023 COVID-19 Vaccine ( season) COVID-19 Vaccine ( season) [facility] Start: 06-19-2023 Influenza vaccination Influenza Vacc ine (#1) [facility] Start: 06-19-2019 Influenza vaccination INFLUENZA VACC INE (#1) [facility] Start: 2019 DTaP/Tdap/Td Vaccine s (1 - Tdap) DTaP/Tdap/Td Vaccines (1 - Tdap) [facility] Start: 06-19-2018 Influenza vaccination [facility] Start: 2016 Hepatitis B Vaccines (1 of 3 - 19+ 3-dose series) Hepatitis B Vaccines (1 of 3 - 19+ 3-dose series) [facility] Start: 2016 Third diphtheria, tetanus and acellular pertussis (DTaP) vaccination TDAP (ADULT) [facility] Work Phone: Start: 2015 Diabetes mellitus screening Diabetes Screening [facility] Start: 2015 Hepatitis C screening Hepatitis C Sc reening [facility] Start: 2015 Tetanus vaccination TETANUS [facility] Work Phone: Start: 2012 HIV screening HIV Screening [facility] Start: 2012 HPV Vaccines (1 - Ma le 3-dose series) HPV Vaccines (1 - Male 3-dose series) [facility] Start: 2010 HIV screening HIV SCREENING DISCUSSI ON [facility] Work Phone: Start: 2010 Varicella vaccination Varicell a Vaccines (1 of 2 - 13+ 2-dose series) [facility] Start: 2009 Depression screening using PHQ-9 (Patient Health Questionnaire 9) score [facility] Start: 2008 HPV Vaccines (1 - Ma le 2-dose series) HPV Vaccines (1 - Male 2-dose series) [facility] Start: 2008 Vaccination for xuan n papillomavirus [facility] Start: 2000 History and physical examination, annual for health maintenance Wellness Visit [facility] Start: 1998 MMR Vaccines (1 of 1 - Standard series) MMR Vaccines (1 of 1 - Standard series) [facility] Start: 1998 Varicella vaccination Varicell a Vaccines (1 of 2 - 2-dose childhood series) [facility] Start: 1997 COVID-19 Vaccine (#1) COVID-19 Vacci ne (#1) [facility] Start: 1997 Hepatitis B Vaccines (1 of 3 - 3-dose series) Hepatitis B Vaccines (1 of 3 - 3-dose series) [facility] Start: 1997 HIV screening HIV Screening [facility] Start: 1997 Lipid panel Lipid Panel [facility] Start: 1997 Tetanus vaccination [facility] Start: 1997 Yearly Adult Physical Yearly Adult P hysical [facility] Blood ammonia measurement [facility] Borrelia burgdorferi blot test [facility] C reactive protein [Mass/volume] in Serum or Plasma [facility] CBC W Auto Different ial panel - Blood [facility] Comprehensive metabo lic 2000 panel - Serum or Plasma [facility] End: 02-16-2024 Continuous Pulse oximetry, In Phase 1 Continuous Pulse oximetry, In Phase 1 Respiratory Care Routine Continuous until discontinued starting 02/16/2024 [facility] Work Phone: Comment on above: Continuous until dis continued starting 02/16/2024 Erythrocyte sedimentation rate [facility] Magnesium measurement [facility] End: 01-18-2024 MR Brain WO contrast [facility] Service [facility] Work Phone: Comment on above: Once for 1 Occurrenc es starting 01/18/2024 until 01/18/2024 Surgical pathology study Surgica l Pathology Exam Pathology and Cytology Timed Scrotal cyst Release Upon Ordering for 1 Occurrences starting 02/16/2024 [facility] Service Area Work Phone: Comment on above: Release Upon Orderin g for 1 Occurrences starting 02/16/2024 Topiramate [Mass/vol ume] in Serum or Plasma [facility] End: 01-15-2024 US Scrotum and testicle [facility] Service Are a Work Phone: Comment on above: Once for 1 Occurrenc es starting 01/15/2024 until 01/15/2024 End: 04-28-2024 XR Wrist - bilateral 3 Views [facility] Service Area Work Phone: Comment on above: Once for 1 Occurrenc es starting 04/28/2024 until 04/28/2024 Payers Date Payer Category Payer Self-pay 2023 Medicaid (Managed Care) [facility] PLAN [id number] 2023 Private Health Insurance [facility] [id number] 2023-Present [address] [place] [address] [id number] 2018 Medicaid [facility] MEDICAID COM [employer] PLAN [facility] MEDICAID COMMUNITY PLAN xxxxxxxxx 2018-Present xxxxxxxxx [id number] 2017 Medicaid [id number] 2017 Medicaid [facility] MANAGED [facility] CAID [facility] MEDICAID COMMUNITY PLAN [id number] 2017-Present [phone] [address] [place] [address] [id number] 2017 Medicaid [id number] 1995 Unknown [id number] 2..840.1.295718.3.579.2 .1997 Unknown [id number] .1997 Unknown [id number] 2.16.840.1.777213.3.579.2 .1997 Unknown [id number] 2.16.840.1.093979.3.579.2 .1242 1997 Unknown [id number] 2.16.840.1.201425.3.579.2 .1242 1997 Unknown [id number] 2.16.840.1.151529.3.579.2 .1242 1997 Unknown [id number] 2.16.840.1.058819.3.579.2 .1242 1997 Unknown [id number] 2.16.840.1.897304.3.579.2 .1242 1997 Unknown [id number] 2.16.840.1.096499.3.579.2 .1242 1997 Unknown [id number] 2.16.840.1.227840.3.579.2 .1242 1997 Unknown [id number] 2.16.840.1.639227.3.579.2 .1242 1997 Unknown [id number] 2.16.840.1.277704.3.579.2 .1242 1997 Unknown [id number] 2.16.840.1.543519.3.579.2 .1242 1997 Unknown [id number] 2.16.840.1.286579.3.579.2 .1243 1997 Unknown [id number] 2.16.840.1.517292.3.579.2 .1243 1997 Unknown [id number] 2.16.840.1.640630.3.579.2 .1243 1997 Unknown [id number] 2.16.840.1.468754.3.579.2 .1243 1997 Unknown [id number] 2.16.840.1.704056.3.579.2 .1243 1997 Unknown [id number] 2.16.840.1.005471.3.579.2 .1243 1997 Unknown [id number] 2.16.840.1.262104.3.579.2 .1243 1997 Unknown [id number] 2.16.840.1.604520.3.579.2 .1244 1997 Unknown [id number] 2.16.840.1.542882.3.579.2 .1244 1997 Unknown [id number] 2.16.840.1.566669.3.579.2 .1245 Unknown [id number] 2.16.840.1.309743.3.579.2 .462 Unknown [id number] 2.16.840.1.767765.3.579.2 .462 Unknown [id number] 2.16.840.1.887152.3.579.2 .462 Unknown [id number] 2.16.840.1.109833.3.579.2 .462 Unknown [id number] 2.16.840.1.749719.3.579.2 .462 Unknown [id number] 2.16.840.1.806922.3.579.2 .462 Unknown [id number] 2.16.840.1.799736.3.579.2 .462 Worker's Compensation [id number] Social History Date Type Detail Facility Start: 03-29-2018 End: 06-08-2025 Tobacco smoking status NHIS Former smoker [facility] Start: 1995 Sex Assigned At Not on file [facility] Start: 09-27-2018 End: 10-17-2018 Tobacco smoking status NHIS Current every day smoker [facility] Work Phone: Start: 09-27-2018 Tobacco Comment [facility] Start: 01-13-2024 Tobacco smoking status NHIS Never smoked tobacco [facility] Work Phone: Start: 03-29-2018 End: 01-13-2024 Tobacco use and exposure Smokeless tobacco non-user [facility] Work Phone: Start: 01-13-2024 End: 05-30-2024 Alcohol intake Current drinker of alcohol (finding) [facility] Work Phone: Start: 01-13-2024 End: 05-23-2024 History of Social function [facility] Work Phone: Start: 01-13-2024 End: 05-23-2024 Tobacco use panel [facility] Work Phone: Start: 01-03-2024 End: 10-05-2024 Exposure to SARS-CoV-2 (event) Not sure [facility] Start: 02-16-2024 End: 10-05-2024 Alcoholic beverage intake Ex-drinker (finding) [facility] Work Phone: History of tobacco use Current smoker [facility] Start: 03-29-2018 Tobacco Comment uses vape [facility] Start: 03-29-2018 Alcohol Comment ocass [facility] Start: 07-21-2018 Gender identity Identifies as male gender (finding) [facility] Start: 07-21-2018 Sexual orientation Heterosexual (finding) [facility] Work Phone: Start: 1995 Sex Assigned At Male [facility] Clinical Notes 01-13-2024 to 03-23-2025 Note Date & Type Note Facility 03-23-2025 Evaluation note Diagnosis Onset Date Resolution Migraine headache without aura acute March 23, 2025 2 :28pm Neck pain acute March 23, 2025 2:28pm Paresthesia of both hands acute March 23, 2025 2 :28pm History of concussion inactive Mar 2:28pm Memory loss inactive March 23 2:28pm Migraine headache without aura acute June 08 2:31pm Neck pain acute June 08, 2 025 2:31pm Paresthesia of both hands acute June 08 2:31pm History of concussion inactive May 2:31pm Memory loss inactive June 08, 2025 2:31pm [facility] Work Phone: 1(371) [phone] Evaluation note* Diagnosis Onset Date Resolution Status Admit Date Migraine headache without aura acute December 01, 2 025 1:31pm Neck pain acute December 01, 2024 1:31pm Paresthesia of both hands acute December 01, 2024 1:31pm History of concussion inactive Nov ruary 2024 1:31pm Memory loss inactive November 1:31pm Migraine headache without aura acute March 23, 2025 2 :28pm Neck pain acute March 23, 2025 2:28pm Paresthesia of both hands acute March 23, 2025 2:28pm History of concussion inactive Mar 2:28pm Memory loss inactive March 23 2:28pm [facility] [employer] Work Phone: 1(195) 235-534212-18-2024 History of Present illness Narrative* Fox Arnett, DO - 10/05/2024 3:00 PM EST Subjective Patient ID: Jose Flores II is a 29 y.o. male who presents for Follow-up (6 month) and Migraine (Having issues with migraines ). Migraine Patient is here today for 6 mo follow up Pt reports that he has had a really bad headache for the last 3 days. He has not been able to get it to stop He reports that he was having some neck pain and then numbness and tingling in his lower legs. Feltlike his legs were completely numb. Has been waxing and waning over the last few days. Review of Systems Neurological: Positive for headaches. Objective BP 127/79 Pulse 80 Ht 1.727 m (5' 8) Wt 122 kg (269 lb) BMI 40.90 kg/m Physical Exam Constitutional: General: He is not in acute distress. Appearance: Normal appearance. HENT: Head: Normocephalic. Nose: Nose normal. Mouth/Throat: Pharynx: No oropharyngeal exudate. Eyes: General: Right eye: No discharge. Left eye: No discharge. Extraocular Movements: Extraocular movements intact. Pupils: Pupils are equal, round, and reactive to light. Cardiovascular: Rate and Rhythm: Normal rate and regular rhythm. Heart sounds: No murmur heard. No gallop. Pulmonary: Effort: Pulmonary effort is normal. No respiratory distress. Breath sounds: Normal breath sounds. No wheezing. Musculoskeletal: General: No swelling. Normal range of motion. Skin: General: Skin is warm and dry. Coloration: Skin is not jaundiced. Neurological: General: No focal deficit present. Mental Status: He is alert and oriented to person, place, and time. Cranial Nerves: No cranial nerve deficit. Sensory: No sensory deficit. Motor: No weakness. Coordination: Coordination normal. Psychiatric: Mood and Affect: Mood normal. Behavior: Behavior normal. Assessment/Plan Problem List Items Addressed This Visit Hydrocele PTSD (post-traumatic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 aura without status migrainosus, not intractable Procedures MR brain wo IV contrast Fox Arnett DO [address] [facility] [address] Referral ID Status Reason Start Date Expiration Date Visits Requested Visits Authorized [id number] Pending Review Perform Procedure 01/13/2024 01/12/2025 1 1 Specialty Diagnoses / Procedures Referred By Contac t Referred To Contact Urology Diagnoses Testicle lump FedeFox lu L, DO [address] [facility] [place] [address] Referral ID Status Reason Start Date Expiration Date Visits Requested Visits Authorized [id number] Authorized Specialty Services Required 01/13/2024 01/12/2025 1 1 Referral ID Status Reason Start Date Expiration Date Visits Requested Visits Authorized [id number] Authorized Perform Procedure 01/13/2024 01/12/2025 1 1 Specialty Diagnoses / Procedures Referred By Contac t Referred To Contact Neurology Diagnoses Bilateral hand numbness Timothy Arnettn, DO [address] [place] [address] [facility] Referral ID Status Reason Start Date Expiration Date V isits Requested Visits Authorized [id number] Authorized 04/15/2024 04/15/2025 1 1 Specialty Diagnoses / Procedures Referred By Contac t Referred To Contact Radiology Diagnoses Bilateral hand numbness Procedures XR wrist 3+ views bilateral Edyta Chavez, CV/CVN CV TSC SYSTEM OPERATOR-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 [address] [facility], [address] [address] Referral ID Status Reason Start Date Expiration Date Visits Requested Visits Authorized [id number] Authorized Perform Procedure 04/28/2024 04/28/2025 1 1 Chief Complaint and Reason for Visit Chief Complaint Admit Date 2 M FU December 01, 2024 1:31pm 4 M FU March 23, 2025 2:28p m Reason for Visit Admit Date Migraine headache without aura December 01, 2024 1:31pm Neck pain December 01, 2024 1:31pm Paresthesia of both hands December 01, 2024 1:31pm History of concussion December 01 1:31pm Memory loss December 01, 2024 1:31pm Migraine headache without aura March 23, 2025 2:28pm Neck pain March 23, 2025 2:28p m Paresthesia of both hands March 23, 2025 2:28pm History of concussion March 23, 2025 2:2 8pm Memory loss March 23, 2025 2:28p m Chief Complaint Admit Date 4 M FU March 23, 2025 2:28p m FOLLOW UP June 08, 2025 2: 31pm Reason for Visit Admit Date Migraine headache without aura March 23, 2025 2:28pm Neck pain March 23, 2025 2:28p m Paresthesia of both hands March 23, 2025 2:28pm History of concussion March 23, 2025 2:2 8pm Memory loss March 23, 2025 2:28p m Migraine headache without aura June 082024 2:31pm Neck pain June 08, 2025 2: 31pm Paresthesia of both hands June 08, 2 025 2:31pm History of concussion June 08, 2025 2:31pm Memory loss June 08, 2025 2: 31pm Additional Source Comments Reason for Visit (unrecogniz ed section and content) Reason Comments Vomiting needs work excuse Reason Comments Results Reason Comments 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 and diabetes in his familyReports its been years since he has had lab work Depression +PTSD+Consistent Specialty Diagnoses / Procedures Referred By Yogesh gunter Referred To Contact Radiology Diagnoses Testicle lump Procedures US scrotum w doppler Fox Arnett, DO [address] [facility] [address] Referral ID Status Reason Start Date Expiration Date Visits Requested Visits Authorized [id number] Authorized Perform Procedure 01/13/2024 01/12/2025 1 1 Specialty Diagnoses / Procedures Referred By Yogesh t Referred To Contact Radiology Diagnoses History of concussion Chronic migraine without aura without status migrainosus, not intractable Procedures MR brain wo IV contrast Fox Arnett, DO [address] [facility] [address] Referral ID Status Reason Start Date Expiration Date Visits Requested Visits Authorized [id number] Authorized Perform Procedure 01/13/2024 01/12/2025 1 1 Specialty Diagnoses / Procedures Referred By Yogesh t Referred To Contact Diagnoses Scrotal cyst Scrotal cyst [L72.9] Procedures AR EXC B9 LESION MRGN XCP SK TG S/N/H/F/G 0.5 CM/< Excision Lesion Male Genitalia Kenneth Peguero MD [address] [place] [address] [address] Referral ID Status Reason Start Date Expiration Date Visits Re quested Visits Authorized [id number] 1 1 Reason Comments INCISION ISSUES Specialty Diagnoses / Procedures Referred By Contac t Referred To Contact Neurology Diagnoses Bilateral hand numbness Fox Arnett [address] [address] [facility] Referral ID Status Reason Start Date Expiration Date Visits Re quested Visits Authorized [id number] Closed 04/15/2024 04/15/2025 1 1 Reason Comments Follow-up Reason Comments Follow-up 3 month Specialty Diagnoses / Procedures Referred By Contac t Referred To Contact Primary Care Procedures Follow Up In Primary Care - Established Fox Arnett DO [address] [place] [address] [place] [address] Referral ID Status Reason Start Date Expiration Date V isits Requested Visits Authorized [id number] Authorized 01/13/2024 01/12/2025 1 1 Specialty Diagnoses / Procedures Referred By Contac t Referred To Contact Radiology Diagnoses Bilateral hand numbness Procedures XR wrist 3+ views bilateral Edyta Chavez, CV/CVN CV TSC SYSTEM OPERATOR-PALLETIZER [address] [facility], [facility] [address] [place] [address] Referral ID Status Reason Start Date Expiration Date Visits Requested Visits Authorized [id number] Authorized Perform Procedure 04/28/2024 04/28/2025 1 1 Reason Comments Pain Reason Comments Follow-up 6 month Migraine Having issues with m igraines Specialty Diagnoses / Procedures Referred By Contac t Referred To Contact Primary Care Procedures Follow Up In Primary Care - Established Fox Arnett DO [address] [place] [address] Physician [place] [id number] Phone: tel: fax: Referral ID Status Reason Start Date Expiration Date V isits Requested Visits Authorized [id number] Authorized 04/14/2024 04/14/2025 1 1 (unrecognized sect ion and content) No Status Records FoundNo Status Records FoundNo Status Records FoundNo Status Records FoundNo Status Records FoundNo Status Records FoundNo Status Records FoundNo Status Records Found INFORMATION SOURCE (unrecogn ized section and content) DATE CREATED AUTHOR 10/17/2018 [facility] DATE CREATED AUTHOR AUTHOR'S ORGANIZ ATION 10/19/2018 [facility] DATE CREATED AUTHOR AUTHOR'S ORGANIZ ATION 08/26/2021 [facility] DATE CREATED AUTHOR AUTHOR'S ORGANIZ ATION 06/01/2024 [facility] DATE CREATED AUTHOR AUTHOR'S ORGANIZ ATION 07/13/2024 [facility] DATE CREATED AUTHOR AUTHOR'S ORGANIZ ATION 10/09/2024 [facility] DATE CREATED AUTHOR AUTHOR'S ORGANIZ ATION 11/09/2024 [facility] DATE CREATED AUTHOR AUTHOR'S ORGANIZ ATION 08/22/2025 [facility] Care Teams (unrecognized sec tion and content) Marketing Manager Health Communications Relationship Specialty Start Date End Date Fox Arnett DO [address] [facility] Physician [place] [id number] PCP - General Internal Medicine 01/13/24 Marketing Manager Health Communications Relationship Specialty Start Date End Date Fox Arnett DO [address] [facility] [place] [address] PCP - General Internal Medicine 01/13/24 Marketing Manager Health Communications Relationship Specialty Start Date End Date Fox Arnett DO [address] [facility] [place] [address] PCP - General Internal Medicine 01/13/24 Marketing Manager Health Communications Relationship Specialty Start Date End Date Fox Arnett DO [address] [facility] [place] [address] PCP - General Internal Medicine 01/13/24 Marketing Manager Health Communications Relationship Specialty Start Date End Date Fox Arnett DO [address] [facility] [place] [address] PCP - General Internal Medicine 01/13/24 Marketing Manager Health Communications Relationship Specialty Start Date End Date Altagracia Dickerson CNP [address] [place] [address] PCP - General Family Medicine 03/29/18 Marketing Manager Health Communications Relationship Specialty Start Date End Date Altagracia Dickerson, PALLETIZER [address] [place] [address] PCP - General Family Medicine 03/29/18 Marketing Manager Health Communications Relationship Specialty Start Date End Date Fox Arnett DO [address] [facility] [place] [address] PCP - General Internal Medicine 01/13/24 Marketing Manager Health Communications Relationship Specialty Start Date End Date Fox Arnett DO [address] [facility] [place] [address] PCP - General Internal Medicine 01/13/24 Marketing Manager Health Communications Relationship Specialty Start Date End Date Fox Arnett DO [address] [facility] [place] [address] PCP - General Internal Medicine 01/13/24 Marketing Manager Health Communications Relationship Specialty Start Date End Date Fox Arnett DO [address] [facility] [place] [address] PCP - General Internal Medicine 01/13/24 Marketing Manager Health Communications Relationship Specialty Start Date End Date Fox Arnett DO [address] [facility] [place] [address] PCP - General Internal Medicine 01/13/24 Fox Arnett DO [address] [facility] [place] [address] PCP - [facility] Medicaid PCP 07/19/24 Team Status: Active Member Role Status Dates Dr. Fox Arnett DO Primary Care Provider Active Team Status: Inactive Member Role Status Dates Dr. Fox Arnett DO Primary Care Provider Active Start: December 01, 2024 End: December 01, 2024 Dr. Fox Arnett DO Referring Provider Active Start: December 01, 2024 End: December 01, 2024 Dr. Gallo Robles MD Attending Provider Active Start: December 01, 2024 End: December 01, 2024 Team Status: Inactive Member Role Status Dates Dr. Fox Arnett DO Primary Care Provider Active Start: March 23, 2025 End: March 23, 2025 Dr. Fox Arnett DO Referring Provider Active Start: March 23, 2025 End: March 23, 2025 SANDRA Nunez Attending Provider Active S tart: March 23, 2025 End: March 23, 2025 Team Status: Active Member Role/Relationship Status Dates Dr. Fox Arnett DO Primary Care Provider Active Team Status: Inactive Member Role/Relationship Status Dates Dr. Fox Arnett DO Primary Care Provider Active Start: March 23, 2025 End: March 23, 2025 Dr. Fox Arnett DO Referring Provider Active Start: March 23, 2025 End: March 23, 2025 SANDRA Nunez Attending Provider Active S tart: March 23, 2025 End: March 23, 2025 Team Status: Inactive Member Role/Relationship Status Dates Dr. Fox Arnett DO Primary Care Provider Active Start: June 08, 2025 End: June 08, 2025 Dr. Fox Arnett DO Referring Provider Active Start: June 08, 2025 End: June 08, 2025 SANDRA Nunez Attending Provider Active S tart: June 08, 2025 End: June 08, 2025 Scheduled Active and Recently Administ ered Medications (unrecognized section and content) Medication Order 02/14/2024 02/15/2024 02/16/2024 ondansetron (Zofran) injection 4 mg (COMPLETED) 4 mg, intravenous, Once, On 02/16/24 at 1045, For 1 dose, Preprocedure, When administering via IV Push, administer over 3-5 minutes. 1104 (Given - Provid er: Megan Houser RN) Continuous Medication Order 02/14/2024 02/15/2024 02/16/2024 lactated Ringer's infusion 100 mL/hr, intravenous, Continuous, Starting on 02/16/24 at 1045, Preprocedure 1105 (New Bag - Prov ider: Megan Houser RN) lactated Ringer's infusion 100 mL/hr, intravenous, Continuous, Starting on 02/16/24 at 1230, Recovery (only) 1230 (Due) PRN Medication Order 02/14/2024 02/15/2024 02/16/2024 HYDROmorphone (Dilaudid) injection 0.5 mg 0.5 mg, intravenous, Every 5 min PRN, pain mild (1-3), first line, Starting on 02/16/24 at 1202, Recovery (only), Max total of 4 mg regardless of dose. HYDROmorphone (Dilaudid) injection 0.5 mg 0.5 mg, intravenous, Every 5 min PRN, pain moderate (4-6), first line, Starting on e 02/16/24 at 1202, Recovery (only), Max total of 4 mg regardless of dose. midazolam (Versed) injection 2 mg (COMPLETED) 2 mg, intravenous, Once as needed, anxiety, Starting on Thu02/16/24 at 1019, For 1 dose, Preprocedure 1105 (Given - Provid er: Megan Houser RN) ondansetron (Zofran) injection 4 mg 4 mg, intravenous, Once as needed, nausea/vomiting, first line, Starting on Thu02/16/24 at 1202, For 1 dose, Recovery (only), When administering via IV Push, administer over 3-5 minutes. oxyCODONE (Roxicodone) immediate release tablet 5 mg 5 mg, oral, Every 4 hours PRN, pain mild (1-3), first line, Starting on Thu02/16/24 at 1202, Recovery (only), When able to take oral medications., If ordered PRN for pain, nurse is permitted to administer this medication for higher pain scores based on patient preference? Yes oxygen (O2) therapy inhalation, Continuous PRN - O2/gases, other, Starting on Thu02/16/24 at 1202, Recovery (only), Device: Nasal Cannula, Rate in liters per minute: Other, Custom Value: 1-6 LPM, Keep O2 Sat Above: 92% promethazine (Phenergan) 6.25 mg in sodium chloride 0.9% 50 mL IV 6.25 mg, intravenous, Administer over 15 Minutes, Once as needed, Nausea/vomiting, second line, Starting on Thu02/16/24 at 1202, For 1 dose, Recovery (only) Goals (unrecognized section and content) Goals may be documented in a n alternate sectionGoals may be documented in an alternate section FOR RECORDS PERTAINING TO PATIENTS WHO ARE OR HAVE BEEN ENROLLED IN A CHEMICAL DEPENDENCY/SUBSTANCEABUSE PROGRAM, SOME INFORMATION MAY BE OMITTED. This clinical summary was aggregated from multiple sources. Caution should be exercised in using it in the provision of clinical care. This summary normalizes information from multiple sources, and as a consequence, information in this document may materially change the coding, format and clinical context of patient data. In addition, data may be omitted in some cases. CLINICAL DECISIONS SHOULD BE BASED ON THE PRIMARY CLINICAL RECORDS. [facility] [facility]. provides no warranty or guarantee of the accuracy or completeness of information in this document.
== END | disposition home or self-care (01) ==
LOC: SL 20:02
PROVIDERS: PCP Internal Medicine; Visit Provider Psychiatry & Neurology Neurology
DX: G47.30 Sleep apnea, unspecified (principal)
CPT/HCPCS: 95810